=== PATIENT | female | born 1955 | race Caucasian/White ===

== ENCOUNTER → 2017-04-16 10:23 | Outpatient (CLI) | payer BC, SELFPAY ==
--- NOTE | 2017-04-16 10:28 | RAD_ITS ---
STUDY: X-RAY CHEST REASON FOR EXAM: Female, 61 years old. Cough. TECHNIQUE: PA and lateral views of the chest. COMPARISON: Comparison is made with prior study dated August 15, 2010. FINDINGS: The lungs are clear and expanded. Scattered calcified granulomas. There is no demonstrated pleural abnormality. Normal size heart. Normal mediastinum and rosy. Normal visualized pulmonary arteries. There is atherosclerotic calcification of the aortic arch with tortuosity. There is demineralization of the osseous structures. Normal visualized ribs, clavicles, and shoulders. There is no demonstrated abnormality of the visualized soft tissue structures of the upper abdomen. RAD/Chest PA and Lateral IMPRESSION: No acute abnormality is seen. Electronically Signed: Darrian Caruso MD at 14:33 EST Tel [phone], Service support ,
== END ==
PROVIDERS: Family Provider Internal Medicine; PCP Internal Medicine; Visit Provider Internal Medicine
DX: R05 Cough (principal)
CPT/HCPCS: 71046

== ENCOUNTER → 2018-02-15 09:19 | Outpatient (CLI) | payer BC, SELFPAY ==
--- NOTE | 2018-02-15 09:23 | RAD_ITS ---
STUDY: X-RAY CHEST REASON FOR EXAM: Female, 62 years old. Upper respiratory tract infection. TECHNIQUE: PA and lateral views of the chest. COMPARISON: Comparison is made with prior study dated April 16, 2017. FINDINGS: The lungs are clear and expanded. Scattered calcified granulomas. There is no demonstrated pleural abnormality. Normal size heart. Normal mediastinum and rosy. Normal visualized pulmonary arteries. There is atherosclerotic calcification of the aortic arch with tortuosity. Normal visualized thoracic spine. There is degenerative osteoarthritis of the bilateral shoulders. There is no demonstrated abnormality of the visualized soft tissue structures of the upper abdomen. RAD/Chest PA and Lateral IMPRESSION: No acute abnormality is seen. Electronically Signed: Darrian Caruso MD at 10:01 EST Tel [phone], Service support ,
--- OUTSIDE RECORDS SUMMARY | 2018-03-29 23:01 | XMS RPT_ITS | Continuity of Care Document ---
:1955 Author Organization [facility] Address [address] [place] [address] Phone Care Team Providers Name Role Phone Marzena Jansen CNP Unavailable Zoe Zeng DO Unavailable Lin Reese Unavailable Unavailable Unavailable Unavailable Problems Name Dates Details Abnormal lung sounds (R09.89, 786.7) Status: Active Acute bronchitis (J20.9, 466.0) Comments: issue ?viral seeing alot mycoplasma. Status: Active Anxiety (F41.9, 300.00) Status: Active BMI 32.0-32.9,adult (Z68.32, V85.32) Status: Active BMI 38.0-38.9,adult (Z68.38, V85.38) Status: Active Bronchitis (J40, 490) Status: Active Bruit of right carotid artery (R09.89, 785.9) Status: Active Cough (R05, 786.2) Status: Active Current nonsmoker (Renamed from Current non-smoker) (Z78.9, V49.89) Status: Active Deliveries (Parity) Comments: 1 Status: Active Depressive disorder (F32.9, 311) Status: Active Elevated blood pressure (not hypertension) (R03.0, 796.2) Comments: better Status: Active Fever and chills (R50.9, 780.60) Status: Active Gallbladder polyp (K82.4, 575.6) Comments: told due in nov for followup Status: Active GERD (gastroesophageal reflux disease) (K21.9, 530.81) Status: Active Low back pain (M54.5, 724.2) Status: Active Microcytosis (R71.8, 790.09) Status: Active Osteopenia (M85.80, 733.90) Status: Active Pharyngitis, acute (J02.9, 462) Comments: think allergies possibilty viral cannot rule out bacterial sinus infectionbut no yellow green. start off with check cx. 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.82) Status: Active URI (upper respiratory infection) (J06.9, 465.9) Status: Active VITAMIN D DEFICIENCY (Renamed from Avitaminosis D) (E55.9, 268.9) Status: Active Wheezing (R06.2, 786.07) Status: Active Medications Name Dates Details Albuterol Sulfate (2.5 MG/3ML) 0.083% Inhalation Nebulization Solution 1 (one) Milliliter x 1in office for 0 days Quantity: 1 {Nebule} Refills: 0 Ordered:15-Feb-2018 Marzena Jansen CNP, CNP Marzena Fontenot Start : 15-Feb-2018 Active Delsym 30 MG/5ML Oral Suspension Extended Release 1 (one) Milliliter q12hr for 0 days Quantity: 120 {Milliliter} Refills: 0 Ordered:15-Feb-2018 Marzena Jansen CNP, CNP Hyacinth Start : 15-Feb-2018 Active IRON SUPPLEMENT, 325 (65 Fe)MG (Oral Tablet) 1 tab bid (325 (65 Fe) MG) Active Pantoprazole Sodium 40 MG Oral Tablet Delayed Release 1 (one) Tablet DR daily for 90 days Quantity: 90 {Tablet} Refills: 0 Ordered:21-Feb-2018 Rosangela Mulligan DO Start : 21-Feb-2018 Active PredniSONE 10 MG Oral Tablet 1 (one) Tablet bid x 3 days,l then daily x 3 days then 1/2 x 3days for 0 days Quantity: 12 {Tablet} Refills: 0 Ordered:15-Feb-2018 Inderjit HAWK, Marzena Greco CNP, Marzena Fontenot Start : 15-Feb-2018 Active Comments:with food ProAir HFA 108 (90 Base) MCG/ACT Inhalation Aerosol Solution 2 (two) Puff q6hr for 0 days Quantity: 1 {Inhaler} Refills: 0 Ordered:15-Feb-2018 Inderjit HAWK, Marzena Greco CNP, Marzena Fontenot Start : 15-Feb-2018 Active VITAMIN D3, 2000UNIT (Oral Tablet) 2 (two) Tablet Tablet qd for 0 days Quantity: 60 {Tablet} Refills: 0 Ordered:16-Oct-2013 Jordyn Nicholson Start : 12-Jul-2013 Active Zithromax Z-Bakari 250 MG Oral Tablet 1 (one) Tablet uad for 0 days Quantity: 1 {Package} Refills: 0 Ordered:15-Feb-2018 Inderjit HAWK, Marzena Greco CNP, Marzena Fontenot Start : 15-Feb-2018 Active ALIGN, 4MG (Oral Capsule) 1 (one) Capsule Capsule daily for 0 days Quantity: 30 {Capsule} Refills: 0 Ordered:07-Mar-2015 MARISABEL Dodson Start : 21-May-2014 End : 07-Mar-2015 Inactive AYSE-D 12 HOUR, 60-120MG (Oral Tablet Extended Release 12 Hour) 1 Tablet ER 12HR q12 hr for 5 days Quantity: 10 {Tablet_ER_12HR} Refills: 0 Ordered:05-Jun-2009 Inderjit HAWK, Marzena Greco CNP, Marzena Fontenot Start : 05-Jun-2009 End : 10-Jun-2009 Inactive Amoxicillin-Pot Clavulanate 875-125 MG Oral Tablet 1 (one) Tablet bid for 10 days Quantity: 20 {Tablet} Refills: 0 Ordered:16-Apr-2017 Rosangela Mulligan DO Start : 16-Apr-2017 End : 26-Apr-2017 Inactive ATIVAN, 0.5MG (Oral Tablet) 1 (one) Tablet BID prn for 0 days Quantity: 60 {Tablet} Refills: 0 Ordered:29-Nov-2006 Yanely Roberson LPN Start : 29-Nov-2006 End : 29-Dec-2006 Inactive AUGMENTIN, 875-125MG (Oral Tablet) 1 (one) Tablet bid for 10 days Quantity: 20 {Tablet} Refills: 0 Ordered:13-Sep-2014 Rosangela Mulligan DO Start : 13-Sep-2014 End : 23-Sep-2014 Inactive CIPRO, 500MG (Oral Tablet) 1 (one) Tablet bid for 7 days Quantity: 14 {Tablet} Refills: 0 Ordered:24-May-2014 Inderjit HAWK, Marzena Greco CNP, Marzena Fontenot Start : 24-May-2014 End : 31-May-2014 Inactive LEVAQUIN, 500MG (Oral Tablet) 1 Tablet qd for 0 days Quantity: 10 {Tablet} Refills: 0 Ordered:27-Mar-2009 MARISABEL Dodson Start : 23-Mar-2007 End : 03-Feb-2007 Inactive LEVAQUIN, 500MG (Oral Tablet) 1 (one) Tablet daily for 10 days Quantity: 10 {Tablet} Refills: 0 Ordered:02-May-2014 Inderjit HAWK, Marzena Greco CNP, Marzena Fontenot Start : 02-May-2014 End : 12-May-2014 Inactive MUCINEX, 600MG (Oral Tablet Extended Release 12 Hour) 2 (two) Tablet ER 12HR Twice daily for 0 days Refills: 0 Ordered:29-Dec-2006 Yanely Roberson LPN Start : 29-Dec-2006 End : 03-Feb-2007 Inactive NASONEX, 50MCG/ACT (Nasal Suspension) 1 Suspension 2puffs once daily for 0 days Quantity: 1 {Suspension} Refills: 0 Ordered:24-Dec-2009 Nichelle Eng LPN Start : 27-Mar-2009 Inactive PREDNISONE, 20MG (Oral Tablet) 1 Tablet Daily for 0 days Quantity: 6 {Tablet} Refills: 0 Ordered:29-Dec-2006 Yanely Roberson LPN Start : 29-Dec-2006 End : 03-Feb-2007 Inactive PRILOSEC, 20MG (Oral Capsule Delayed Release) 1 (one) Capsule DR Capsule DR daily for 0 days Quantity: 30 {Capsule} Refills: 0 Ordered:07-Mar-2015 MARISABEL Dodson Start : 21-May-2014 End : 07-Mar-2015 Inactive QVAR, 80MCG/ACT (Inhalation Aerosol Solution) 2 (two) Aerosol Soln qam for 90 days Quantity: 3 {Aerosol_Soln} Refills: 0 Ordered:10-Dec-2010 Jordyn Nicholson Start : 10-Dec-2010 End : 10-Mar-2011 Inactive Comments:rinse mouth after use VALIUM, 10MG (Oral Tablet) 1/2-1 Tablet QHS / HS for 0 days Quantity: 14 {Tablet} Refills: 0 Ordered:27-Mar-2009 MARISABEL Dodson Start : 03-Feb-2007 Inactive ZOLOFT, 50MG (Oral Tablet) uad Tablet Daily for 0 days Quantity: 30 {Tablet} Refills: 2 Ordered:29-Dec-2006 Yanely Roberson LPN Start : 29-Dec-2006 End : 03-Feb-2007 Inactive Comments:do 1/2 tab daily for one week then one tablet daily AYSE-D 12 HOUR, 60-120MG (Oral Tablet Extended Release 12 Hour) 1 (one) Tablet ER 12HR q 12hrs prn for 30 days Quantity: 60 {Tablet_ER_12HR} Refills: 1 Ordered:05-Jul-2009 Amanda Hewitt LPN Start : 05-Jul-2009 End : 14-Jul-2011 Discontinued Comments:This order discontinued per [facility]. AYSE-D ALLERGY & CONGESTION, 180-240MG (Oral Tablet Extended Release 24 Hour) 1 Tablet ER 24HR bid for 30 days Quantity: 60 {Tablet_ER_24HR} Refills: 3 Ordered:20-Jul-2011 Mast Sivan BOSWELL Start : 14-Jul-2011 End : 20-Jul-2011 Discontinued ANTIVERT, 12.5MG (Oral Tablet) 1 Tablet q6hrs prn for 0 days Quantity: 30 {Tablet} Refills: 0 Ordered:12-Aug-2010 Jordyn Nicholson Start : 12-Aug-2010 End : 12-Aug-2010 Discontinued ATIVAN, 1MG (Oral Tablet) 1 tab 1 hr prior to procedure (1 MG) End : 12-Aug-2010 Discontinued ATIVAN, 1MG (Oral Tablet) 1 Tablet take 1 30 min before boarding plane and q8hrs prn for 0 days Quantity: 10 Refills: 0 Ordered:09-Jun-2013 Jordyn Nicholson Start : 14-Jul-2011 End : 09-Jun-2013 Discontinued Comments:ten LEXAPRO, 10MG (Oral Tablet) 1 (one) Tablet Daily for 0 days Quantity: 30 {Tablet} Refills: 0 Ordered:03-Feb-2007 Rosangela Mulligan DO Start : 03-Feb-2007 End : 03-Feb-2007 Discontinued NASACORT AQ, 55MCG/ACT (Nasal Aerosol Solution) 1 Aerosol Soln 2puffs once daily for 0 days Quantity: 1 {Aerosol_Soln} Refills: 0 Ordered:12-Aug-2010 Jordyn Nicholson Start : 12-Aug-2010 End : 12-Aug-2010 Discontinued PredniSONE 20 MG Oral Tablet 1 Tablet qd with food for 0 days Quantity: 3 {Tablet} Refills: 0 Ordered:15-Feb-2018 Lin Reese Start : 16-Apr-2017 End : 15-Feb-2018 Discontinued Comments:with food PROVENTIL HFA, 108 (90 Base)MCG/ACT (Inhalation Aerosol Solution) 2 (two) Aerosol Soln qid prn for 0 days Quantity: 1 {Aerosol_Soln} Refills: 0 Ordered:09-Jun-2013 Jordyn Nicholson Start : 20-Jul-2011 End : 09-Jun-2013 Discontinued Allergies and Adverse Reactions Name Dates Details No Known Drug Allergies (Allergy) Status: Active Past Medical History Name Dates Details Abdominal pain (R10.9, 789.00) Comments: epigastric Status: Inactive as of 13-Sep-2014 Abnormal finding of blood chemistry, unspecified (R79.9, 790.6) Status: Inactive as of 07-Mar-2015 Acute exacerbation of COPD with asthma (J44.1, 493.22) Status: Inactive as of 27-Mar-2009 Acute sinusitis, unspecified (J01.90, 461.9) Status: Resolved as of 12-Jul-2013 Anxiety state (F41.1, 300.00) Status: Inactive as of 07-Mar-2015 Benign paroxysmal positional vertigo, unspecified laterality (H81.10, 386.11) Status: Resolved as of 09-Jun-2013 Chronic orthostatic hypotension (I95.1, 458.0) Comments: negative Status: Inactive as of 27-Mar-2009 Cough (R05, 786.2) 20-Jul-2011 Status: Inactive as of 13-Sep-2014 Diarrhea (R19.7, 787.91) Comments: ongoingcolonoscopy 2013 by Sudeep Status: Inactive as of 13-Sep-2014 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 D/W Dr. Mulligan as well Status: Resolved as of 12-Aug-2010 Facial pain, acute (R51, 784.0) Status: Inactive as of 17-Jul-2016 Flu-like symptoms (R68.89, 780.99) Status: Inactive as of 17-Jul-2016 LEG CRAMPS (Renamed from Leg cramp) (R25.2, 729.82) Comments: replace iron and vitd Status: Inactive as of 13-Sep-2014 Nausea (R11.0, 787.02) Status: Inactive as of 13-Sep-2014 Other specified viral infection, in conditions classified elsewhere and of unspecified site (B97.89, 079.89) Status: Resolved as of 12-Jul-2013 POISON BIB Status: Inactive as of 27-Mar-2009 Pre-operative examination (Z01.818, V72.84) Status: Inactive as of 09-Jun-2013 Shortness of breath at rest (R06.02, 786.05) 20-Jul-2011 Status: Resolved as of 09-Jun-2013 Sinus infection (J32.9, 473.9) Status: Inactive as of 17-Jul-2016 Tobacco use (Z72.0, 305.1) Status: Inactive as of 27-Mar-2009 Unspecified Diagnosis Status: Inactive as of 12-Jul-2013 Weight gain (R63.5, 783.1) Status: Inactive as of 27-Mar-2009 Wheezing (R06.2, 786.07) 20-Jul-2011 Status: Inactive as of 13-Sep-2014 Procedures Procedure Dates Details bunion removed 2010 Completed Date Value Details 20-Feb-2018 Carotid Duplex Ultrasound Result: Comments: See Note; NOTES: [facility] Cardiovascular Services [address] [place] [address] Carotid Duplex Ultrasound 02/18/18 0754 MR#: [id number] Acct: [id number] Name: CLARITA ISSA Rep #: [id number] : 1955 62 From: Murtaza Polanco MD Attending Dr: Marzena Jansen NP Status: REG CLI Ordering Dr: Marzena Jansen E TAILER-C Date: 02/18/18 Location: [facility] Sex: F C Admitted: Reas on For Study: BRUIT Rt. Velocities/BP Lt. Velocities/BP Prox CCA 131/19 cm/sec. Prox CCA 80/21 cm/sec. Mid CCA 74/18 cm/sec. Mid CCA 78/21 cm/sec. Dist CCA 84/18 cm/sec. Dist CCA 59/24 cm/sec. Prox ICA 59/24 cm/sec. Prox ICA 46/18 cm/sec. Mid ICA 72/26 cm/sec. Mid ICA 65/26 cm/sec. Dist ICA 58/23 cm/sec. Dist ICA 78/31 cm/sec. Rt. ICA/CCA = 1.0. Lt. ICA/CCA = 1.0. Prox ECA 95/20 cm/sec. Prox ECA 103/ 15 cm/sec. Rt. Vert. 50/19 cm/sec. Lt. Vert. 55/15 cm/sec. Right Extracranial There is intimal thickening but no significant atherosclerotic plaque noted in the right common carotid artery. There is in timal thickening but no significant atherosclerotic plaque noted in the right internal carotid artery. There is homogeneous, smooth atherosclerotic plaque noted in the right external carotid artery. Ant egrade flow is noted in the right vertebral artery. Left Extracranial There is intimal thickening but no significant atherosclerotic plaque noted in the left common carotid artery. There is intimal th ickening but no significant atherosclerotic plaque noted in the left internal carotid artery. There is heterogeneous, smooth atherosclerotic plaque noted in the left external carotid artery. Antegrade f low is noted in the left vertebral artery. Procedure Carotid Duplex [id number]. Exam performed in department. Interpretation Summary No significant atherosclerotic plaque or stenosis noted in the internal carotid arteries bilaterally. Flow within the vertebral arteries is antegrade bilaterally. Myae ring Physician: Marzena Jansen Referring Physician: ZOE ZENG Performed By: Tracy Montero, JODYCS, RVT 02/20/181819 Date ____ Murtaza Polanco MD CC: Marzena Jansen E TAILER; Zoe Zeng DO Date Dictated: 02/18/18 0754 Date Transcribed: 02/20/181819 Actimize Architect: Signed 15-Feb-2018 Chest PA and Lateral Result: Comments: See Note; NOTES: [facility] Imaging Services [address] [place] [address] Chest PA and Lateral MR#: [id number] Acct: [id number] Name: CLARITA LAZO Rep #: [id number] : 1955 F 62 From: Darrian Caruso MD PCP: Zoe Zeng DO Status: REG CLI Study: Chest PA and Lateral Date of Exam: 02/15/18 Exam# [id number] Ordering Dr: Marzena Jansen E TAILER-C STUDY: X-RAY CHES T REASON FOR EXAM: Female, 62 years old. Upper respiratory tract infection. TECHNIQUE: PA and lateral views of the chest. COMPARISON: Comparison is made with prior study dated April 16, 2017. FINDINGS: The lungs are clear and expanded. Scattered calcified granulomas. There is no demonstrated pleural abnormality. Normal size heart. Normal mediastinum and rosy . Normal visualized pulmonary arteries. There is atherosclerotic calcification of the aortic arch with tortuosity. Normal visualized thoracic spine. There is degenerative osteoarthritis of the bilatera l shoulders. There is no demonstrated abnormality of the visualized soft tissue structures of the upper abdomen. RAD/Chest PA and Lateral IMPRES POLA: No acute abnormality is seen. Electronically Signed: Darrian Caruso MD at 10:01 EST Tel [phone], Service support , CC: Marzena Jansen E TAILER; Zoe Zeng DO Actimize Architect: Signed 16-Apr-2017 Chest PA and Lateral Result: Comments: See Note; NOTES: [facility] Imaging Services [address] [place] [address] Chest PA and Lateral MR#: [id number] Acct: [id number] Name: CLARITA LAZO Rep #: [id number] : 1955 F 61 From: Darrian Caruso MD PCP: Zoe Zeng DO Status: REG CLI Study: Chest PA and Lateral Date of Exam: 04/16/17 Exam# [id number] Ordering Dr: Rosangela Mulligan DO STUDY: X-RAY CHEST REASON FOR EXAM: Female, 61 years old. Cough. TECHNIQUE: PA and lateral views of the chest. COMPARISON: Comparison is made with prior study dated August 15, 2010. __ FINDINGS: The lungs are clear and expanded. Scattered calcified granulomas. There is no demonstrated pleural abnormality. Normal size heart. Normal mediastinum and rosy. Normal visualized pulmonar y arteries. There is atherosclerotic calcification of the aortic arch with tortuosity. There is demineralization of the osseous structures. Normal visualized ribs, clavicles, and shoulders. There is n o demonstrated abnormality of the visualized soft tissue structures of the upper abdomen. RAD/Chest PA and Lateral IMPRESSION: No acute abnormali ty is seen. Electronically Signed: Darrian Caruso MD at 14:33 EST Tel [phone], Service support , CC: Zoe Zeng DO; Rosangela Mulligan DO Actimize Architect: Signed 03-Oct-2014 History and Physical Exam Result: Comments: See Note; NOTES: [facility] Medical Records Department [address] [place] [address] History and Physical 10/03/14 1212 MR#: [id number] Acct: [id number] Name: CLARITA LAZO Rep #: [id number] : 1955 59 From: Phu Juan PA-C PCP: Zoe Zeng DO Status: PRE IN Location: [facility] DATE OF SERVICE: This is Tomás Slaughter, dictating a preopera tive H and P for Dr. Severo Foster. This is a 59-year-old female with a date of 1955. PLANNED PROCEDURE: The patient is scheduled for a left total knee arthroplasty. PRIMARY CARE PH YSICIAN: Zoe Zeng M.D. HISTORY OF PRESENT ILLNESS: A pleasant 59-year-old female, who has had an insidious type onset of pain over the past several years, it has progressively gotten worse over the past year and half. The patient describes the pain as a deep aching type pain, rated as high as an 8 on a scale of 1-10, has a constant pain of a 4. The patient states the pain is made worse with twisting or turning, going up or downstairs and does awake her at night. The patient has attempted to treat this conservatively with anti-inflammatories, intraarticular injections including Euflexxa, therapy and home exercise and lifestyle modification, but still finds the pain is now inhibiting her ability to do her normal daily activities. 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 The patient also has had periods where knee was going to give out on her secondary to the pain. Feels she has otherwise been in good health . She was recently treated by Dr. Zeng for a sinus infection. At this time, she is asymptomatic and cleared for surgery. It was also noted preoperatively, the patient does have positive Staph aureus, this will be treated via nasal swab. The patient will be treated per protocol. REVIEW OF SYSTEMS: The patient feels although again and otherwise in good health. Denies any other recent illnesses or infection. Denies any change in her hair, skin, or nails. Denies chest pain, heart murmur, or irregular heartbeat. Does have a history of bronchitis and cough, but is asymptomatic at this time. Denie s any history of asthma or sleep apnea. Does report a history of heartburn, but denies constipation, diarrhea, difficulty swallowing, hematochezia, or melena. Does report a history of irregular menstr ual periods, but denies any urinary complaints including incontinence, frequency, burning or hematuria. Does report history of tattoos, but denies any history of Raynaud or shingles. The patient nicholas es any history of anxiety, depression, insomnia, mental illness, stress or suicidal ideations. The patient denies any history of anemia, bleeding, bruising tendencies or past transfusions. I have maría acevedo discussed and reviewed at length and in detail 10 review of systems. All pertinent positives and negatives noted in the medical record. PAST MEDICAL HISTORY: The patient denies any pertinent p ast medical history. PAST SURGICAL HISTORY: The patient has had previous surgical history including lower back surgery by Dr. Coles in 2000, tubal ligation in [facility], and right foot surgery in [address] Bauman. The patient does report that she has difficult time with anesthesia, she has a hard time waking up. She does wear glasses and dentures. SOCIAL HISTORY: The germaine ent is with 1 child. 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 ALLERGIES: The patient denies any known allergies. MEDICATIONS: For complete list of the patient's presently prescribed medications, [id number] medications, supplements, as well as vitamins and herbs, please see the medication reconciliation form. PHYSICAL EXAMINATION: GENERAL: I found a healthy-appearing, alert, oriented, 59-year-old female. VITAL SIGNS: With the blood pres sure of 128/88, pulse of 100, and respiratory rate of . The patient is 64 inches tall with a weight of 190 pounds and a BMI of 31.4. HEENT: Within normal limits. NEUROLOGIC: Cranial nerves II th rough XII are grossly intact. NECK: Supple. No JVD. No carotid bruits. LUNGS: Clear. CARDIAC: No heaves, thrills or murmurs with a regular rate and rhythm. MUSCULOSKELETAL: The patient had no pain o n palpation of cervical, thoracic, or lumbosacral spine. She has full range of motion of bilateral shoulders, elbows, wrists and hands. Good muscle tone and strength. Neurovascular is otherwise intact . ABDOMEN: Soft, nontender without masses, equal femoral pulses. EXTREMITIES: Good range of motion of the bilateral hips. Good range of motion of the right knee without pain. Left knee, the patient h ad no gross varus valgus deformity. She was painful along the medial lateral joint line and also had a positive patellar grind test. She was lacking 4 degrees of full extension, flexion to 120 degrees with increased pain beyond 120 degrees. Calves nontender. No atrophic skin change, varicosity or edema. Neurovascular is otherwise intact. IMAGING STUDIES: Four views, AP, lateral, sunrise view a nd weightbearing tunnel shows significant narrowing of the medial lateral joint line and patellofemoral joint. She also has no gross varus valgus deformity. IMPRESSION: Tricompartmental osteoarthri tis, left knee. PLAN: Dr. Foster did discuss with the patient treatment options including continued conservative therapy versus surgery. At this time, the patient feels she has failed conservative therapies and would like to proceed with surgery. The patient also feels that her knee has got into a point where she is having difficult time doing just her basic daily activities and again would lik e to proceed with surgery. The plan, the patient will undergo a left total knee arthroplasty by Dr. oFster. She will then be admitted to [facility], where she will continu e with her postop medical care, pain management and therapy. Anticipated length of stay is 2 midnight stays. NABOR Slaughter T: NTS JOB: [id number] 10/03/14 1421 <Electronically stacie d by Phu Juan PA-C> Date: Time: Phu Juan PA-C CC: Zoe Zeng DO; Phu TOMLIN Date Dictated: 10/03/141211 Date Transcri bed: 10/03/141211 Actimize Architect: Signed ____ I have re-examined the patient. There are no clinical changes since date of exam. ____ See Progress Notes for Changes ____ Dictated on Admiss ion Date: Time: Signature: 06-Jun-2014 Lower Ext Joint Only (Routine) Result: Comments: See Note; NOTES: [facility] Imaging Services [address] [place] [address] MRI Report MR#: [id number] Acct: [id number] Name: CLARITA LAZO Rep #: [id number] OB: 1955 F 58 From: Jason Llanos MD PCP: Zoe Zeng DO Status: REG CLI Study: Lower Ext Joint Only (Routine) Date of Exam: 06/06/14 Exam# [id number] Ordering Dr: Phu Juan PAIshmaelC STUDY: MRI LEFT KNEE REASON FOR EXAM: Female, 58 years old. Lt knee injury with pain progressively getting worse x 3 months TECHNIQUE: Standardized fat and water weighted pulse sequences were obtained i n all 3 orthogonal planes. COMPARISON: None. FINDINGS: Normal medial meniscus. There is diffuse, greater than 50% thickness articular cartilage loss of the med ial femorotibial compartment. Normal medial femoral condyle and tibial plateau. Normal medial collateral ligamentous complex (MCL). Normal distal semimembranosus, gracilis and semitendinosus tendons . There is intrasubstance degeneration and a horizontal tear of the anterior horn of the lateral meniscus (sagittal proton density series 3 image 82). There is diffuse, greater than 50% thickness ar ticular cartilage loss of the lateral femorotibial compartment. Normal lateral femoral condyle and tibial plateau. Normal proximal tibiofibular articulation. Normal lateral collateral (fib ular) ligament. Normal popliteus tendon. Normal biceps femoris tendon. Normal anterior cruciate ligament (ACL). Normal posterior cruciate ligament (PCL). Normal congruent patellofemoral a rticulation. There is diffuse, greater than 50% thickness articular cartilage loss of the patellofemoral compartment. Normal medial and lateral patellar retinaculum. Normal quadriceps tendon. Normal patellar tendon. Normal Hoffa's fat pad. There is a moderate volume joint effusion. There is small posterior intra-articular loose bodies. There is a suprapatellar plica. The soft tissues are unre markable. The otherwise visualized osseous structures are unremarkable. IMPRESSION: Tricompartmental osteoarthritis. Intrasubstance degeneration and tearing of the lateral meniscus involving predominantly the anterior horn. Joint effusion. Intra-articular loose bodies. Electronically Signed: Jason Llanos MD, FACR at 20:16 EDT Tel , Service support [phone], CC: Zoe Zeng DO; Phu TOMLIN Actimize Architect: Signed 16-Apr-2014 Spine Lumbar W/WO Contrast Result: Comments: See Note; NOTES: [facility] Imaging Services [address] [place] [address] MRI Report MR#: [id number] Acct: [id number] Name: CLARITA LAZO Rep #: [id number] OB: 1955 F 58 From: Jamal Sauceda MD PCP: Zoe Zeng DO Status: REG CLI Study: Spine Lumbar W/WO Contrast Date of Exam: 04/16/14 Exam# [id number] Ordering Dr: Jamal Coles STUDY: MRI L UMBAR SPINE WITH AND WITHOUT CONTRAST REASON FOR EXAM: Female, 58 years old. Postop pain TECHNIQUE: Standardized fat and water weighted pulse sequences were obtained in the sagittal and axial plane s. 9 ml of Gadavist contrast material was administered for the contrast portion of the examination. COMPARISON: None FINDINGS: T12-L1: Degenerative endplate c hanges Normal disc height, hydration and morphology. Normal bilateral facet joints. Normal central canal and bilateral lateral recesses. Normal bilateral intervertebral neural foramina. Normal lumb ar lordosis. There is no substantial scoliosis. Normal conus medullaris L1- 2: Degenerative endplate changes Normal disc height, hydration and morphology. Normal bilateral facet joints. Normal centra l canal and bilateral lateral recesses. Normal bilateral intervertebral neural foramina. L2-3: Degenerative endplate changes. Normal disc height, hydration and morphology. Normal bilateral facet elier ints. Normal central canal and bilateral lateral recesses. Normal bilateral intervertebral neural foramina. L3-4: Degenerative endplate changes. Normal disc height, hydration and minimal annular bu lge Normal bilateral facet joints. Normal central canal and bilateral lateral recesses. Normal bilateral intervertebral neural foramina. L4-5: Grade 1 spondylolisthesis. Normal endplates. Normal dis c height, hydration and signal and are bulge. Mild bilateral facet arthropathy and thickening of ligamenta flava. Normal central canal and mild to moderate narrowing of the lateral recesses Normal bi lateral intervertebral neural foramina. L5-S1: Postop changes status post laminectomy and posterior fusion Normal endplates. Normal disc height, hydration and morphology. Normal bilateral facet everardo nts. Normal central canal and bilateral lateral recesses. Normal bilateral intervertebral neural foramina. Mild enhancing epidural fibrosis is seen in the anterior epidural space following contrast in jection. No evidence for osteomyelitis or discitis. Normal visualized sacral ala. Normal visualized paraspinous soft tissue structures. IMPRESSION: Spinal s tenosis at L4-5 secondary to combination of grade 1 spondylolisthesis facet arthropathy and thickening of ligamenta flava exaggerated by shortened pedicles. Postop changes at L5-S1 demonstrating mild anterior epidural fibrosis but no evidence for recurrent disc disease with spinal stenosis. No evidence for acute osteomyelitis or discitis. Electronically Signed: Jamal Sauceda MD a t 21:59 EST , Service support [phone], CC: Zoe Coles Actimize Architect: Signed 15-Aug-2013 Liver Result: Comments: See Note; NOTES: [facility] Imaging Services [address] [place] [id number] Ultrasound Report MR#: [id number] Acct: [id number] Name: CLARITA LAZO Rep #: [id number] : 1955 F 58 From: Darrian Caruso MD PCP: Zoe Zeng DO Status: REG CLI Study: Liver Date of Exam: 08/15/13 Exam# [id number] Ordering Dr: Zoe Zeng DO STUDY: ABDOMINAL ULTRASO UND - RIGHT UPPER QUADRANT REASON FOR VISIT: Female, 58 years old. Elevated liver function tests. TECHNIQUE: Ultrasound evaluation of the right upper quadrant was performed with real-time and stati c macedo-scale imaging. TECHNICAL QUALITY: Adequate. COMPARISON: None. FINDINGS: Liver: The liver measures 12.7 cm. There is normal echogenicity of the liver. The bile ducts are within normal limits. There is hepatic color flow. The direction of portal flow is hepatopetal. There is no demonstrated mass lesion. Gallbladder: Normal distended gallbladder. T he gallbladder wall measures 2.0 mm. There is a negative sonographic Sheets's sign. There is no pericholecystic fluid. There is a 5 mm echogenic nodule along the dependent portion of the gallbladder. This does not move when the patient changes position. There is no posterior acoustical shadowing. This may represent a small polyp. Common Bile Duct (C.B.D.): The common bile duct measures 4.4 mm. Pancreas: Normal size of the head, body and tail of the pancreas. There is normal echogenicity of the pancreas. There is no demonstrated pancreatic mass or cyst. Right Kidney: Normal size of the r ight kidney. The right kidney measures 9.1 cm. Normal renal cortex. The right cortex measures 1.1 cm. There is no demonstrated renal mass or cyst. There is no right hydronephrosis. IMPRESSION: Findings suggestive of a 5 mm polyp along the dependent portion of the gallbladder. 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 Status: Active Tobacco Use Comments: Recently quit tobacco use Status: Inactive Smoking Status Name Dates Details Former smoker Vital Signs Date Test Result Details :58 Temperature 98.1 f Comments: Method: Temporal Pulse 98 /min Comments: Pattern: Regular Respiration Rate 18 /min Comments: Pattern: Unlabored O2 SAT 95 % Comments: Room air BP Systolic 132 mm[Hg] Comments: Patient Position: Sitting; Cuff Location: Left Arm; Cuff Size: Standard BP Diastolic 78 mm[Hg] Comments: Patient Position: Sitting; Cuff Location: Left Arm; Cuff Size: Standard Weight 218.4 lb Height 63 in Body Mass Index Calculated 38.69 kg/m2 Body Surface Area Calculated 2.01 m2 :17 Temperature 98.5 f Pulse 88 /min Comments: Pattern: Regular Respiration Rate 18 /min Comments: Pattern: Unlabored O2 SAT 95 % Comments: Room air BP Systolic 142 mm[Hg] Comments: Patient Position: Sitting; Cuff Location: Left Arm; Cuff Size: Standard BP Diastolic 88 mm[Hg] Comments: Patient Position: Sitting; Cuff Location: Left Arm; Cuff Size: Standard Weight 183 lb Height 63 in Body Mass Index Calculated 32.42 kg/m2 Body Surface Area Calculated 1.86 m2 :03 Temperature 97.9 f Comments: Method: Temporal Pulse 76 /min Comments: Pattern: Regular Respiration Rate 20 /min Comments: Pattern: Unlabored O2 SAT 97 % Comments: Room air BP Systolic 120 mm[Hg] Comments: Patient Position: Sitting; Cuff Location: Left Arm; Cuff Size: Standard BP Diastolic 78 mm[Hg] Comments: Patient Position: Sitting; Cuff Location: Left Arm; Cuff Size: Standard Weight 183 lb Height 63 in Body Mass Index Calculated 32.42 kg/m2 Body Surface Area Calculated 1.86 m2 :02 Temperature 98.2 f Comments: Method: Temporal Pulse 93 /min Comments: Pattern: Regular Respiration Rate 20 /min Comments: Pattern: Unlabored O2 SAT 97 % Comments: Room air BP Systolic 148 mm[Hg] Comments: Patient Position: Sitting; Cuff Location: Left Arm; Cuff Size: Standard BP Diastolic 86 mm[Hg] Comments: Patient Position: Sitting; Cuff Location: Left Arm; Cuff Size: Standard Weight 183 lb Height 63 in Body Mass Index Calculated 32.42 kg/m2 Body Surface Area Calculated 1.86 m2 :52 Pulse 69 /min Comments: Pattern: Regular Respiration Rate 18 /min Comments: Pattern: Unlabored O2 SAT 96 % Comments: Room air BP Systolic 128 mm[Hg] Comments: Patient Position: Sitting; Cuff Location: Left Arm; Cuff Size: Standard BP Diastolic 82 mm[Hg] Comments: Patient Position: Sitting; Cuff Location: Left Arm; Cuff Size: Standard Weight 183.125 lb Height 63 in Body Mass Index Calculated 32.44 kg/m2 Body Surface Area Calculated 1.86 m2 :04 Temperature 97.3 f Pulse 101 /min Comments: Pattern: Regular Respiration Rate 16 /min Comments: Pattern: Unlabored O2 SAT 96 % Comments: Room air BP Systolic 116 mm[Hg] Comments: Patient Position: Sitting; Cuff Location: Left Arm; Cuff Size: Standard BP Diastolic 68 mm[Hg] Comments: Patient Position: Sitting; Cuff Location: Left Arm; Cuff Size: Standard Weight 183.125 lb Height 63 in Body Mass Index Calculated 32.44 kg/m2 Body Surface Area Calculated 1.86 m2 :18 Temperature 97.9 f Comments: Method: Oral Pulse 84 /min Comments: Pattern: Regular Respiration Rate 17 /min O2 SAT 94 % Comments: Room air BP Systolic 124 mm[Hg] Comments: Patient Position: Sitting; Cuff Location: Left Arm; Cuff Size: Standard BP Diastolic 76 mm[Hg] Comments: Patient Position: Sitting; Cuff Location: Left Arm; Cuff Size: Standard Weight 185.25 lb Height 63 in Body Mass Index Calculated 32.82 kg/m2 Body Surface Area Calculated 1.87 m2 :08 Temperature 97.8 f Pulse 96 /min Comments: Pattern: Regular Respiration Rate 18 /min Comments: Pattern: Unlabored O2 SAT 97 % Comments: Room air BP Systolic 122 mm[Hg] Comments: Patient Position: Sitting; Cuff Location: Left Arm; Cuff Size: Standard BP Diastolic 82 mm[Hg] Comments: Patient Position: Sitting; Cuff Location: Left Arm; Cuff Size: Standard Weight 186.125 lb Height 63 in Body Mass Index Calculated 32.97 kg/m2 Body Surface Area Calculated 1.88 m2 :57 Temperature 97.2 f Pulse 78 /min Comments: Pattern: Regular Respiration Rate 16 /min Comments: Pattern: Unlabored BP Systolic 124 mm[Hg] Comments: Patient Position: Sitting; Cuff Location: Left Arm; Cuff Size: Large BP Diastolic 82 mm[Hg] Comments: Patient Position: Sitting; Cuff Location: Left Arm; Cuff Size: Large Weight 182 lb Height 63 in Body Mass Index Calculated 32.24 kg/m2 Body Surface Area Calculated 1.86 m2 :09 Temperature 98.5 f Pulse 86 /min Comments: Pattern: Regular Respiration Rate 16 /min Comments: Pattern: Unlabored BP Systolic 122 mm[Hg] Comments: Patient Position: Sitting; Cuff Location: Left Arm; Cuff Size: Large BP Diastolic 82 mm[Hg] Comments: Patient Position: Sitting; Cuff Location: Left Arm; Cuff Size: Large Weight 178 lb Height 63 in Body Mass Index Calculated 31.53 kg/m2 Body Surface Area Calculated 1.84 m2 :26 Temperature 96.9 f Pulse 76 /min Comments: Pattern: Regular Respiration Rate 18 /min Comments: Pattern: Unlabored BP Systolic 134 mm[Hg] Comments: Patient Position: Sitting; Cuff Location: Left Arm; Cuff Size: Large BP Diastolic 86 mm[Hg] Comments: Patient Position: Sitting; Cuff Location: Left Arm; Cuff Size: Large Weight 178 lb Height 63 in Body Mass Index Calculated 31.53 kg/m2 Body Surface Area Calculated 1.84 m2 :21 Temperature 96.6 f Comments: Method: Oral Pulse 68 /min Comments: Pattern: Regular Respiration Rate 20 /min Comments: Pattern: Unlabored BP Systolic 128 mm[Hg] Comments: Patient Position: Sitting; Cuff Location: Left Arm; Cuff Size: Standard BP Diastolic 88 mm[Hg] Comments: Patient Position: Sitting; Cuff Location: Left Arm; Cuff Size: Standard Weight 183 lb Height 62.75 in Body Mass Index Calculated 32.68 kg/m2 Body Surface Area Calculated 1.86 m2 :08 Temperature 98.4 f Comments: Method: Oral Pulse 84 /min Comments: Pattern: Regular Respiration Rate 16 /min Comments: Pattern: Unlabored O2 SAT 95 % Comments: Room air BP Systolic 122 mm[Hg] Comments: Patient Position: Sitting; Cuff Location: Left Arm; Cuff Size: Standard BP Diastolic 86 mm[Hg] Comments: Patient Position: Sitting; Cuff Location: Left Arm; Cuff Size: Standard Weight 183 lb Height 62.75 in Body Mass Index Calculated 32.68 kg/m2 Body Surface Area Calculated 1.86 m2 :51 Temperature 98.3 f Comments: Method: Oral Pulse 68 /min Comments: Pattern: Regular Respiration Rate 16 /min Comments: Pattern: Unlabored BP Systolic 128 mm[Hg] Comments: Patient Position: Sitting; Cuff Location: Left Arm; Cuff Size: Standard BP Diastolic 76 mm[Hg] Comments: Patient Position: Sitting; Cuff Location: Left Arm; Cuff Size: Standard Weight 172 lb Height 62.75 in Body Mass Index Calculated 30.71 kg/m2 Body Surface Area Calculated 1.81 m2 :53 Temperature 97.9 f Pulse 72 /min Comments: Pattern: Regular Respiration Rate 16 /min Comments: Pattern: Unlabored BP Systolic 110 mm[Hg] Comments: Patient Position: Sitting; Cuff Location: Left Arm; Cuff Size: Standard BP Diastolic 86 mm[Hg] Comments: Patient Position: Sitting; Cuff Location: Left Arm; Cuff Size: Standard Weight 172 lb Height 62.75 in Body Mass Index Calculated 30.71 kg/m2 Body Surface Area Calculated 1.81 m2 :57 Temperature 97.3 f Comments: Method: Oral Pulse 72 /min Comments: Pattern: Regular Respiration Rate 16 /min Comments: Pattern: Unlabored BP Systolic 110 mm[Hg] Comments: Patient Position: Sitting; Cuff Location: Left Arm; Cuff Size: Standard BP Diastolic 70 mm[Hg] Comments: Patient Position: Sitting; Cuff Location: Left Arm; Cuff Size: Standard Weight 159 lb :09 Temperature 97.5 f Comments: Method: Oral Pulse 80 /min Comments: Pattern: Regular Respiration Rate 17 /min Comments: Pattern: Unlabored O2 SAT 97 % Comments: Room air BP Systolic 128 mm[Hg] Comments: Patient Position: Sitting; Cuff Location: Left Arm; Cuff Size: Standard BP Diastolic 74 mm[Hg] Comments: Patient Position: Sitting; Cuff Location: Left Arm; Cuff Size: Standard Weight 159 lb :10 Temperature 95.2 f Comments: Method: Oral Pulse 78 /min Comments: Pattern: Regular Respiration Rate 18 /min Comments: Pattern: Unlabored BP Systolic 124 mm[Hg] Comments: Patient Position: Sitting; Cuff Location: Left Arm; Cuff Size: Standard BP Diastolic 74 mm[Hg] Comments: Patient Position: Sitting; Cuff Location: Left Arm; Cuff Size: Standard Weight 159 lb :11 Temperature 98.2 f Comments: Method: Oral Pulse 84 /min Comments: Pattern: Regular Respiration Rate 18 /min Comments: Pattern: Unlabored O2 SAT 97 % Comments: Room air BP Systolic 118 mm[Hg] Comments: Patient Position: Sitting; Cuff Location: Left Arm; Cuff Size: Standard BP Diastolic 78 mm[Hg] Comments: Patient Position: Sitting; Cuff Location: Left Arm; Cuff Size: Standard :00 Temperature 98.1 f Comments: Method: Oral Pulse 76 /min Comments: Pattern: Regular Respiration Rate 16 /min Comments: Pattern: Unlabored BP Systolic 122 mm[Hg] Comments: Patient Position: Sitting; Cuff Location: Left Arm; Cuff Size: Standard BP Diastolic 80 mm[Hg] Comments: Patient Position: Sitting; Cuff Location: Left Arm; Cuff Size: Standard Weight 0 lb Height 0 in Head Circumference 0.00 cm :46 Temperature 99.1 f Comments: Method: Oral Pulse 72 /min Comments: Pattern: Regular Respiration Rate 18 /min Comments: Pattern: Unlabored O2 SAT 94 % Comments: Room air BP Systolic 122 mm[Hg] Comments: Patient Position: Sitting; Cuff Location: Right Arm; Cuff Size: Standard BP Diastolic 90 mm[Hg] Comments: Patient Position: Sitting; Cuff Location: Right Arm; Cuff Size: Standard Weight 159 lb Height 0 in Head Circumference 0.00 cm :27 Pulse 88 /min Comments: Pattern: Regular Respiration Rate 16 /min Comments: Pattern: Unlabored BP Systolic 132 mm[Hg] Comments: Patient Position: Sitting; Cuff Location: Left Arm; Cuff Size: Standard BP Diastolic 88 mm[Hg] Comments: Patient Position: Sitting; Cuff Location: Left Arm; Cuff Size: Standard Weight 161.125 lb Height 64 in Body Mass Index Calculated 27.66 kg/m2 Body Surface Area Calculated 1.78 m2 Head Circumference 0.00 cm :50 Pulse 80 /min Comments: Pattern: Regular Respiration Rate 20 /min Comments: Pattern: Unlabored BP Systolic 142 mm[Hg] Comments: Patient Position: Sitting; Cuff Location: Right Arm; Cuff Size: Standard BP Diastolic 94 mm[Hg] Comments: Patient Position: Sitting; Cuff Location: Right Arm; Cuff Size: Standard Weight 157.5 lb Height 64 in Body Mass Index Calculated 27.03 kg/m2 Body Surface Area Calculated 1.77 m2 Head Circumference 0.00 cm :16 Temperature 98.3 f Comments: Method: Oral Pulse 80 /min Comments: Pattern: Regular Respiration Rate 16 /min Comments: Pattern: Unlabored BP Systolic 132 mm[Hg] Comments: Patient Position: Sitting; Cuff Location: Left Arm; Cuff Size: Standard BP Diastolic 86 mm[Hg] Comments: Patient Position: Sitting; Cuff Location: Left Arm; Cuff Size: Standard Weight 0 lb Height 0 in Head Circumference 0.00 cm Results Date Description Value Details :23 THROAT CULTURE (77317) Comments: neg; PATIENT NOT FASTINGPERFORMED BY: [facility] [id number] Information: SRC:TH Result 1 RRF (Normal) Comments: Routine respiratory jonathan Upper Respiratory Culture Final report (Normal) 77-Hox-33265:09 Rapid Strep Test, Office (77443) Rapid Strep Test, Office Negative (Normal) 95-Vzo-30015:43 KATHERINE CULTURE-OTHER (56647) Comments: PATIENT NOT FASTINGPERFORMED BY: [facility] [id number] [facility] [id number] Information: SRC:TH Result 1 RRF (Normal) Comments: Routine respiratory jonathan Upper Respiratory Culture Final report (Normal) [id number]-Clb-[id number]:14 Rapid Strep Test, Office (87204) Rapid Strep Test, Office Negative (Normal) :07 FLU A+B DIRECT AG, (RAPID) (23972) FLU A+B DIRECT AG, (RAPID) negative a/b (Normal) :06 Rapid Strep Test, Office (64216) Rapid Strep Test, Office Negative (Normal) 3-Uhb-889955:34 Basic Metabolic Profile (BMP) Comments: Test performed at:[facility] [id number] [facility] [place] [address] GAP 6 (Normal) Range: 5-15 CO2 29.0 mmol/L (Normal) Range: 21.0-32.0 CL 103 mmol/L (Normal) Range: 98-107 K 4.2 mmol/L (Normal) Range: 3.5-5.1 NA 138 mmol/L (Normal) Range: 136-145 CA 8.9 mg/dL (Normal) Range: 8.5-10.1 BUN/CRE 24.3 {RATIO} (Abnormal) Range: 10-20 Estimated CRCL 72.88 ml/min (Normal) EST GFR - AA 109 mL/min (Normal) EST GFR 90 mL/min (Normal) CREAT,SERUM 0.7 mg/dL (Normal) Range: 0.6-1.0 BUN 17 mg/dL (Normal) Range: 7-18 GLU 91 mg/dL (Normal) Range: 70-110 3-Ibd-127454:34 MRSA/SAID SCREEN Comments: Test performed at:[facility] Flecwdsshj34[address] [facility] [place] [address] MRSA+SAID SCRN See Note (Normal) Comments: MRSA/SAID SCRNCopy of report sent to Infection Control Printer MS#[id number] 09/29/14 0858 DGRADY. S. AUREUS S. aureus PositiveMRSA MRSA Negative [id number]-Kiv-[id number]:34 Urinalysis, Routine (Dipstick) Comments: How was Urine Obtained? CLEAN CATCHTest performed at:[facility] [id number] [facility] [place] [address] LEUK ESTERASE Negative /ul (Normal) OCCULT BLOOD-UR 25 /ul (Abnormal) NITRITE UR Negative (Normal) UROBILI Normal mg/dL (Normal) PROT DIPSTX Negative mg/dL (Normal) pH UR 5.0 (Normal) Range: 5.0 - 8.0 SP.GR. DIPSTX 1.010 (Normal) Range: 1.002-1.030 KETONE UR Negative mg/dL (Normal) BILIRUBIN URINE Negative mg/dL (Normal) GLUCOSE, UR Normal mg/dL (Normal) CLARITY Clear (Normal) COLOR Straw (Normal) : C difficile Toxins Negative (Normal) Comments: PATIENT NOT FASTINGPERFORMED BY: [facility] [id number] [facility] [id number] 15 A+B, EIA : Occult Blood, Fecal, Negative (Normal) Comments: PATIENT NOT FASTINGPERFORMED BY: [address] [id number] 15 IA 9-Emw-179069:15 Ova + Parasite Exam Comments: PATIENT NOT FASTINGPERFORMED BY: [address] [id number] Result 1 NOCP (Normal) Comments: No ova, cysts, or parasites seen. Ova + Parasite Exam Final report (Normal) Comments: These results were obtained using wet preparation(s) and trichromestained smear. This test does not include testing for Cryptosporidiumparvum, Cyclospora, or Microsporidia. :15 Stool Culture Comments: PATIENT NOT FASTINGPERFORMED BY: [address] [id number] Information: SRC:ST STOOL E coli Shiga Toxin EIA Negative (Normal) Result 1 NCI (Normal) Comments: No Campylobacter species isolated. Campylobacter Culture Final report (Normal) Result 1 NSS (Normal) Comments: No Salmonella or Shigella recovered. Salmonella/Shigella Screen Final report (Normal) :15 White Blood Cells (WBC), Comments: PATIENT NOT FASTINGPERFORMED BY: [facility]6370 [facility] [id number] Stool Result 1 NWBC (Normal) Comments: No white blood cells seen. White Blood Cells (WBC), Final report (Normal) Stool :40 CBC & PLATELETS (AUTO) Comments: PATIENT NOT FASTINGPERFORMED BY: [place] [id number] [facility] [id number] Information: [id number] (98259) Platelets 259 {x10E3/uL} (Normal) Range: 150-379 RDW 15.0 % (Normal) Range: 12.3-15.4 MCHC 33.3 g/dL (Normal) Range: 31.5-35.7 MCH 28.7 pg (Normal) Range: 26.6-33.0 MCV 86 fL (Normal) Range: 79-97 Hematocrit 45.9 % (Normal) Range: 34.0-46.6 Hemoglobin 15.3 g/dL (Normal) Range: 11.1-15.9 RBC 5.33 {x10E6/uL} (Abnormal) Range: 3.77-5.28 WBC 8.5 {x10E3/uL} (Normal) Range: 3.4-10.8 98-Fps-577868:18 Serum Creatinine AND GFR Comments: Test performed at:[facility] Ajrkdcplbd[address] [place], [place] [id number] ; handled by Dr. Coles EST GFR - AA 110 mL/min (Normal) EST GFR 91 mL/min (Normal) CREAT,SERUM 0.7 mg/dL (Normal) Range: 0.6-1.0 16-Max-622143:38 AMA <20.0 {Units} (Normal) Range: 0.0-20.0 Comments: Negative 0.0 - 20.0Equivocal 20.1 - 24.9Positive >24.9Mitochondrial (M2) Antibodies are found in 90-96% ofpatients with primary biliary cirrhosis.Performed at: [facility] [id number] [place], [place] [id number] Director: Joao Begum MD, Phone: [phone] 62-Bep-642259:39 CBCD ALC 2.70 {X10_3/ul} (Normal) Range: 0.83-4.51 ANC 4.0 {X10_3/uL} (Normal) Range: 2.0-7.7 B% 0.4 % (Normal) Range: 0-1 IG% 0.100 % (Normal) Range: 0.0-0.9 Comments: IG% - Immature Granulocytes (promyelocytes, myelocytes andmetamyelocytes) > 1% indicates that a LEFT SHIFT is Present. E% 2.0 % (Normal) Range: 0-5 M% 7.0 % (Normal) Range: 0-10 L% 36.5 % (Normal) Range: 19-41 N% 54.0 % (Normal) Range: 47-70 MPV 10.8 fL (Normal) Range: 6.2-12.0 PLT 261 K/mm3 (Normal) Range: 150-450 RDWCV 17.4 % (Abnormal) Range: 11.6-14.6 RDWSD 52.6 fL (Abnormal) Range: 35.1-43.9 MCH 27.6 pg (Normal) Range: 27.0-32.0 MCHC 33.3 {g/gl} (Normal) Range: 32-36 MCV 82.7 fL (Normal) Range: 81-99 HCT 43.5 % (Normal) Range: 37-47 HGB 14.5 g/dL (Normal) Range: 12.0-15.0 RBC 5.26 {M/mm3} (Normal) Range: 4.2-5.4 WBC 7.4 K/mm3 (Normal) Range: 4.4-11.0 88-Mqz-993451:39 CMP CO2 28.0 mmol/L (Normal) Range: 21.0-32.0 GAP 8 (Normal) Range: 5-15 CL 105 mmol/L (Normal) Range: 98-107 K 3.8 mmol/L (Normal) Range: 3.5-5.1 NA 141 mmol/L (Normal) Range: 136-145 ALT 22 U/L (Normal) Range: 12-78 BIT 0.30 mg/dL (Normal) Range: 0.00-1.00 ALK 117 U/L (Normal) Range: 45-117 AST 20 U/L (Normal) Range: 15-37 CA 9.2 mg/dL (Normal) Range: 8.5-10.1 AG 0.9 {RATIO} (Normal) Range: 0.9-2.4 GLOB 3.8 g/dL (Normal) Range: 2.7-4.2 ALB 3.4 g/dL (Normal) Range: 3.4-5.0 TPROT 7.2 g/dL (Normal) Range: 6.4-8.2 BC 13.3 {RATIO} (Normal) Range: 10-20 GFRAA 82 mL/min (Normal) GFR 68 mL/min (Normal) CREAT 0.9 mg/dL (Normal) Range: 0.6-1.0 BUN 12 mg/dL (Normal) Range: 7-18 GLU 88 mg/dL (Normal) Range: 70-110 23-Shf-326236:39 FE 36 ug/dL (Abnormal) Range: 50-170 63-Jlq-440180:39 EMMA 18 ng/mL (Normal) Range: 8-252 05-Yzl-292347:39 VITD 39.0 mg/mL (Normal) Comments: Vitamin D 25(OH) Status RangeDeficiency <20 ng/mL (50nmol/L)Insuffciency 20 - 30 ng/mL (50 - 75 nmol/L)Sufficiency 30 - 100 ng/mL (75 - 250 nmol/L)Toxicity >100 ng/mL (>250 nmol/L) 97-Muc-902153:07 ALK *ALK* 167 U/L (Abnormal) Range: 50-136 97-Loy-907311:07 ALKISO tALKI 4 % (Normal) Range: 0-16 Comments: Effective August 07, 2013 the reference intervalwill be changing to:0 - 30 days Not Established1 month - 17 years 0 - 818 years - 100 years 0 - 18Performed at: CB - [facility] [address] [id number] Director: Joao Begum MD, Phone: [phone] tALKB 41 % (Normal) Range: 11-68 Comments: Effective August 07, 2013 the reference intervalwill be changing to:Male0 months - 6 months Not Established7 months - 5 years 48 - 976 years - 17 years 67 - 971 8 years - 100 years 12 - 71Fnzunf8 months - 6 months Not Established7 months - 5 years 48 - 976 years - 12 years 69 - 9713 years - 100 years 14 - 68 tALKL 55 % (Normal) Range: 26-86 Comments: Effective August 07, 2013 the reference intervalwill be changing to:Male0 months - 6 months Not Established7 months - 5 years 3 - 506 years - 17 years 3 - 311 8 years - 100 years 13 - 94Tzzrag4 months - 6 months Not Established7 months - 5 years 3 - 516 years - 12 years 2 - 2513 years - 100 years 18 - 85 tALKPHOS 142 [iU]/L (Abnormal) Range: 39-117 97-Ixe-655669:07 GGTP 79 U/L (Abnormal) Range: 5-55 67-Vfq-844339:33 FECAL OCCULT HGB ASSAY- tubes sent home (17753) FECAL OCCULT HGB ASSAY, QUAL, 1-3 SIMULTANEOU negative (Normal) 21-Klo-718952:34 Microscopic Examination Comments: PATIENT WAS FASTINGPERFORMED BY: MED[facility] [id number]Dublin [place] [id number] Bacteria None seen (Normal) Mucus Threads Present (Normal) Epithelial Cells (non renal) 0-10 {/hpf} (Normal) Range: 0 - 10 RBC 0-3 {/hpf} (Normal) Range: 0 - 3 WBC 0-5 {/hpf} (Normal) Range: 0 - 5 23-Amd-419464:10 Creatine Kinase Total (95910) Comments: PATIENT WAS FASTINGPERFORMED BY: [facility] [id number]Dublin [place] [id number] Creatine Kinase,Total,Serum 61 U/L (Normal) Range: 24-173 53-Pae-221701:10 Vitamin D Hydroxy (00393) Comments: PATIENT WAS FASTINGPERFORMED BY: [facility] [id number]Dublin [place] [id number] Vitamin D, 25-Hydroxy 21.8 ng/mL (Abnormal) Range: 30.0-100.0 Comments: Vitamin D deficiency has been defined by the [place] ofMedicine and an Endocrine Society practice guideline as alevel of serum 25-OH vitamin D less than 20 ng/mL (1,2).The Endocrine Society went on to further define vitamin Dinsufficiency as a level between 21 and 29 ng/mL (2).1. IOM ([place] of Medicine). 2010. Dietary reference intakes for calcium and D. [place]: The National Academies Press.2. Azucena MF, Emelyn NC, Cristian MARADIAGA, et al. Evaluation, treatment, and prevention of vitamin D deficiency: an Endocrine Society clinical practice guideline. JCEM. 2010; 96(7):1911-30. 72-Zme-364004:10 LIPID PANEL (99153) Comments: PATIENT WAS FASTINGPERFORMED BY: [facility] Eirltn[address]Dublin [place] [id number] LDL/HDL Ratio 1.2 {ratio_units} (Normal) Range: 0.0-3.2 LDL Cholesterol Calc 110 mg/dL (Abnormal) Range: 0-99 VLDL Cholesterol Elijah 10 mg/dL (Normal) Range: 5-40 HDL Cholesterol 94 mg/dL (Normal) Comments: According to ATP-III Guidelines, HDL-C >59 mg/dL is considered anegative risk factor for CHD. Triglycerides 48 mg/dL (Normal) Range: 0-149 Cholesterol, Total 214 mg/dL (Abnormal) Range: 100-199 23-Zxf-507706:10 URINALYSIS, W/ MICRO (13913) Comments: PATIENT WAS FASTINGPERFORMED BY: [facility] [id number] Microscopic Examination See below: (Normal) Microscopic Examination MICRON (Normal) Comments: Microscopic follows if indicated. Nitrite, Urine Negative (Normal) Urobilinogen,Semi-Qn 0.2 mg/dL (Normal) Range: 0.0-1.9 Bilirubin Negative (Normal) Occult Blood Negative (Normal) Ketones Negative (Normal) Glucose Negative (Normal) Protein Negative (Normal) WBC Esterase Negative (Normal) Appearance Clear (Normal) Urine-Color Yellow (Normal) pH 7.0 (Normal) Range: 5.0-7.5 Specific [place] 1.016 (Normal) Range: 1.005-1.030 13-Wek-265937:10 TSH (59103) Comments: PATIENT WAS FASTINGPERFORMED BY: [id number] [facility] [id number] TSH 0.851 {uIU/mL} (Normal) Range: 0.450-4.500 51-Grj-527306:10 CBC WITH MANUAL DIFF Comments: PATIENT WAS FASTINGPERFORMED BY: [employer] Uzhxtw8153 [facility] [id number] Information: [id number] (00732) Immature Grans (Abs) 0.0 {x10E3/uL} (Normal) Range: 0.0-0.1 Immature Granulocytes 0 % (Normal) Range: 0-2 Baso (Absolute) 0.1 {x10E3/uL} (Normal) Range: 0.0-0.2 Eos (Absolute) 0.2 {x10E3/uL} (Normal) Range: 0.0-0.4 Monocytes(Absolute) 0.5 {x10E3/uL} (Normal) Range: 0.1-0.9 Lymphs (Absolute) 2.3 {x10E3/uL} (Normal) Range: 0.7-3.1 Neutrophils (Absolute) 4.1 {x10E3/uL} (Normal) Range: 1.4-7.0 Basos 1 % (Normal) Range: 0-3 Eos 3 % (Normal) Range: 0-5 Monocytes 7 % (Normal) Range: 4-12 Lymphs 32 % (Normal) Range: 14-46 Neutrophils 57 % (Normal) Range: 40-74 Platelets 354 {x10E3/uL} (Normal) Range: 155-379 RDW 18.8 % (Abnormal) Range: 12.3-15.4 MCHC 31.9 g/dL (Normal) Range: 31.5-35.7 MCH 23.5 pg (Abnormal) Range: 26.6-33.0 MCV 74 fL (Abnormal) Range: 79-97 Hematocrit 38.2 % (Normal) Range: 34.0-46.6 Hemoglobin 12.2 g/dL (Normal) Range: 11.1-15.9 RBC 5.20 {x10E6/uL} (Normal) Range: 3.77-5.28 WBC 7.2 {x10E3/uL} (Normal) Range: 3.4-10.8 87-Tvi-146061:10 METABOLIC PANEL, COMPREHENSIVE Comments: PATIENT WAS FASTINGPERFORMED BY: [facility]St[facility] CenterFcexpl6651 [facility] [id number] ([id number]) ALT (SGPT) 26 [iU]/L (Normal) Range: 0-32 AST (SGOT) 25 [iU]/L (Normal) Range: 0-40 Alkaline Phosphatase, S 140 [iU]/L (Abnormal) Range: 39-117 Bilirubin, Total 0.4 mg/dL (Normal) Range: 0.0-1.2 A/G Ratio 1.5 (Normal) Range: 1.1-2.5 Globulin, Total 2.8 g/dL (Normal) Range: 1.5-4.5 Albumin, Serum 4.1 g/dL (Normal) Range: 3.5-5.5 Protein, Total, Serum 6.9 g/dL (Normal) Range: 6.0-8.5 Calcium, Serum 9.3 mg/dL (Normal) Range: 8.7-10.2 Carbon Dioxide, Total 25 mmol/L (Normal) Range: 19-28 Chloride, Serum 102 mmol/L (Normal) Range: 97-108 Potassium, Serum 4.8 mmol/L (Normal) Range: 3.5-5.2 Sodium, Serum 140 mmol/L (Normal) Range: 134-144 BUN/Creatinine Ratio 18 (Normal) Range: 9-23 eGFR If Africn Am 104 mL/min/1.73 (Normal) eGFR If NonAfricn Am 90 mL/min/1.73 (Normal) Creatinine, Serum 0.73 mg/dL (Normal) Range: 0.57-1.00 BUN 13 mg/dL (Normal) Range: 6-24 Glucose, Serum 81 mg/dL (Normal) Range: 65-99 04-Uts-640008:55 CHEST, PA AND LATERAL Radiology Report See Note (Normal) Comments: CLINICAL:Female, 55 years old. Preop. Prior tobacco use. X-RAY EXAMINATION - CHEST TECHNIQUE:PA and lateral COMPARISON:None. FINDINGS: The lungs are expanded. There is no demonstrated parenchymalabnor mality.There is no demonstrated pleural abnormality. Normal heart and pericardium. Normal mediastinum and rosy. Normal visualized pulmonary arteries.Thereis atherosclerotic calcification of the aortic arch . Normal visualized thoracic spine. Normal visualized ribs, clavicles, andshoulders. There is no demonstrated abnormality of the visualized soft tissuestructures of the upper abdomen. IMPRESSION:N o acute thoracic process Dictated on 08/15/108 by SEVERO EMERY MDTranscribed on 08/15/102346 by ITS IMPORTSign by SEVERO EMERY MD on 08/15/102346 Sign by: SEVERO EMERY MD Plan of Care Name Dates Details Instructions BMI 38.0-38.9,adult : Follow up if no improvement or if symptoms worsen Indication: BMI 38.0-38.9,adult Current nonsmoker (Renamed from Current non-smoker) : Eprescribed prescriptions (G8553) Indication: Current nonsmoker (Renamed from Current non-smoker) BMI 32.0-32.9,adult : Eprescribed prescriptions (G8553) Indication: BMI 32.0-32.9,adult Pharyngitis, acute : Sore throat: diagnosis and treatment Indication: Pharyngitis, acute Tobacco abuse, 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) : Eprescribed prescriptions (G8553) Indication: Tobacco abuse, 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) Pharyngitis, acute : Sore throat: diagnosis and treatment Indication: Pharyngitis, acute Sinus infection : Eprescribed prescriptions (G8553) Indication: Sinus infection Sinus infection : Sinusitis *: sinus Indication: Sinus infection Nausea : Follow up in 2 days Indication: Nausea Diarrhea : *Abd Pain Red Flags Indication: Diarrhea Diarrhea : Diarrhea instructions Indication: Diarrhea Bronchitis : *URI Treatment Indication: Bronchitis Bronchitis : *URI Symptoms Indication: Bronchitis Bronchitis : *Antibiotic Usage Education - Female Indication: Bronchitis Acute sinusitis, unspecified : *URI Treatment Indication: Acute sinusitis, unspecified Acute sinusitis, unspecified : *Antibiotic Usage Education - Female Indication: Acute sinusitis, unspecified Cough : Follow up if no improvement or if symptoms worsen Indication: Cough Benign paroxysmal positional vertigo, unspecified laterality : FOLLOW UP IN 2 WEEKS Indication: Benign paroxysmal positional vertigo, unspecified laterality Benign paroxysmal positional vertigo, unspecified laterality : *Vertigo Education Indication: Benign paroxysmal positional vertigo, unspecified laterality Other specified viral infection, in conditions classified elsewhere and of unspecified site : *URI Symptoms Indication: Other specified viral infection, in conditions classified elsewhere and of unspecified site Other specified viral infection, in conditions classified elsewhere and of unspecified site : *URI Treatment Indication: Other specified viral infection, in conditions classified elsewhere and of unspecified site Diarrhea : Abd Pain Red Flags Indication: Diarrhea Diarrhea : Diarrhea Education Indication: Diarrhea Acute exacerbation of COPD with asthma : URI Symptoms Indication: 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 : Antibiotic Usage Education - Female Indication: Acute exacerbation of COPD with asthma Anxiety : FOLLOW UP IN 1 MONTH Indication: Anxiety Acute exacerbation of COPD with asthma : MDI Education Indication: 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 : Solu Medrol Injection/ Education Indication: Acute exacerbation of COPD with asthma Planned Observations Sputum Culture (11332)Indication: Cough On: 92-Huc-89306:39 Request OVA & PARASITE DIR SMEAR (06142)Indication: Diarrhea On: : Request OCCULT BLOOD FECES SCREEN (42517)Indication: Diarrhea On: :27 Request LEUKOCYTE COUNT, FECAL (55894)Indication: Diarrhea On: : Request C-DIFFICILE, STOOL (10230)Indication: Diarrhea On: : Request KATHERINE CULTURE-STOOL (02232)Indication: Diarrhea On: :27 Request Ferritin (07940)Indication: Microcytosis On: 8-Qnz-101267:03 Request Iron (96759)Indication: Microcytosis On: : Request CBC with manual diff (87447)Indication: Microcytosis On: :03 Request Mitochondrial Antibody (M2) (81688)Indication: Abnormal finding of blood chemistry, unspecified On: : Request METABOLIC PANEL, COMPREHENSIVE (62532)Indication: Gallbladder polyp On: :24 Request CBC WITH MANUAL DIFF (10179)Indication: Microcytosis On: :24 Request FERRITIN (48957)Indication: Microcytosis On: :24 Request IRON (53342)Indication: Microcytosis On: 68-Foh-343725:24 Request Vitamin D Hydroxy (78653)Indication: VITAMIN D DEFICIENCY (Renamed from Avitaminosis D) On: :24 Request IRON BINDING CAPACITY (TIBC) (56462)Indication: Microcytosis On: 7-Wqz-401768:36 Request FERRITIN (99221)Indication: Microcytosis On: 8-Mxl-295891:36 Request IRON (63442)Indication: Microcytosis On: 6-Qhx-438010:36 Request CBC WITH MANUAL DIFF (54913)Indication: Microcytosis On: 5-Gkc-407053:36 Request Vitamin D Hydroxy (58194)Indication: VITAMIN D DEFICIENCY (Renamed from Avitaminosis D) On: 8-Tmb-635536:36 Request HEPATIC FUNCTION PANEL (71624)Indication: Abnormal finding of blood chemistry, unspecified On: 4-Loa-636697:52 Request Comments: recheck in 3 months Mitochondrial Antibody (M2) (85041)Indication: Abnormal finding of blood chemistry, unspecified On: 05-Qax-940189:29 Request GGT (GAMMA GLUTAMYLTRANSFERASE) (88371)Indication: Abnormal finding of blood chemistry, unspecified On: 83-Nmm-39506:55 Request Comments: pls add to order already drawn Alkaline Phosphatase-Isoenzym (01015)Indication: Abnormal finding of blood chemistry, unspecified On: 36-Szg-536669:36 Request Alkaline Phosphatase (08334)Indication: Abnormal finding of blood chemistry, unspecified On: 54-Knp-205147:36 Request TSH (76703)Indication: Elevated blood pressure (not hypertension) On: :36 Request URINALYSIS, W/ MICRO (62063)Indication: Elevated blood pressure (not hypertension) On: :36 Request CBC WITH MANUAL DIFF (55150)Indication: Pre-operative examination On: :36 Request METABOLIC PANEL, COMPREHENSIVE (90479)Indication: Pre-operative examination On: :36 Request KATHERINE CULTURE-STOOL (15145)Indication: Diarrhea On: :46 Request C-DIFFICILE, STOOL (54953)Indication: Diarrhea On: :46 Request LEUKOCYTE COUNT, FECAL (00358)Indication: Diarrhea On: :46 Request LIPID PANEL (15364)Indication: Elevated blood pressure (not hypertension) On: :21 Request URINALYSIS W/O MICRO (84300)Indication: Elevated blood pressure (not hypertension) On: 9-Cax-417516:21 Request TSH (75096)Indication: Elevated blood pressure (not hypertension) On: 0-Jly-056215:21 Request METABOLIC PANEL, COMPREHENSIVE (55614)Indication: Elevated blood pressure (not hypertension) On: :21 Request CBC WITH MANUAL DIFF ([id number])Indication: Elevated blood pressure (not hypertension) On: 0-Rrn-741613:21 Request Planned Procedures CHEST XRAY, PA & LATERAL On: 15-Feb-2018 Intent (47035)By: Inderjit HAWK, Marzena Jansen CNP, [facility] US DOPPLER CAROTID BILATERAL On: 15-Feb-2018 Intent (50487)By: Marzena Jansen CNP, CNP [facility] Aerosol Treatment (90513)By: Inderjit On: 15-Feb-2018 Intent KENN HyacinthPo Jansen CNP [facility] Radiology - Chest- PA and LatBy: On: 16-Apr-2017 Intent Rosangela Mulligan DO Spirometry (32386)By: Isaak WANG, On: 16-Apr-2017 Intent Rosangela Comments: obstruction presnet Aerosol Treatment (40866)By: On: 07-Mar-2015 Intent Jeb ANTONIO, Li Ohara Solu -Medrol Injection, 125 mg On: 02-May-2014 Intent (J2930)By: Marzena Jansen CNP Comments: [id number] hip, IMDose-prefilled syringegiven by:GA Hart signed KENN Marzena Fontenot Aerosol Treatment (21238)By: Humble On: 02-May-2014 Intent Felisha GALLEGOS Ultrasound - GallbladderBy: Fast On: 16-Oct-2013 Intent Zoe WANG Comments: nov Ultrasound - LiverBy: Leroy WANG, On: 22-Aug-2013 Intent Zoe Lam Comments: recheck in 3 months Ultrasound - LiverBy: Leroy WANG, On: 08-Aug-2013 Intent Zoe Lam Eprescribed prescriptions On: 09-Jun-2013 Intent (G8553)By: Zoe Zeng DO Eprescribed prescriptions On: 05-May-2012 Intent (G8553)By: Rosangela Mulligan DO Aerosol Treatment (94490)By: Inderjit On: 20-Jul-2011 Intent KENN HyacinthPo Jansen CNP [facility] Pulse Oximetry (96627)By: Shadi RN, On: 20-Jul-2011 Intent Sivan Inhaler Demo (28143)By: Leroy WANG, On: 12-Aug-2010 Intent Zoe Lam EKG (25656)By: Jordyn Nicholson On: 12-Aug-2010 Intent Comments: ekg showed normal sinus rhythym, normal axis, no acute st/t wave changes Spirometry (62813)By: Leroy WANG, On: 12-Aug-2010 Intent Zoe A Comments: good effort and curve mild obst Pulse Oximetry (21795)By: Leroy WANG, On: 12-Aug-2010 Intent Zoe A Comments: 96 Radiology - Chest- PA and LatBy: On: 12-Aug-2010 Intent Zoe Zeng DO Aerosol Treatment (32082)By: Inderjit On: 05-Jun-2009 Intent Marzena HAWK CNP, Mary E Pulse Oximetry (12963)By: West On: 27-Mar-2009 Intent MARISABEL Aerosol Treatment (77626)By: Leroy On: 23-Mar-2007 Zoe Tyson DO Spirometry (39517)By: Leroy WANG, On: 23-Mar-2007 Intent Zoe Lam Comments: good effort but significant obstruction alexis in small areas Solu- Medrol Injection, 125mg On: 29-Mar-2007 Intent (J2930)By: Zoe Zeng DO Comments: Lot #: [id number] date: mount given: 125 mg/2 mlRoute: IMSite given: Left hipGiven by: Carole Sheridan LPN Pulse Oximetry (70384)By: Shadi RN, On: 23-Mar-2007 Intent Sivan Inhaler Demo (33063)By: Isaak WANG, On: 29-Dec-2006 Intent Rosangela Pulse Oximetry (34114)By: Isaak On: 29-Dec-2006 Intent Rosangela WANG Aerosol Treatment (00785)By: On: 29-Dec-2006 Rosangela Davis DO Solu- Medrol Injection, 125mg On: 29-Dec-2006 Intent (J2930)By: Rosangela Mulligan DO Comments: given 2cc im in left hip lot#[id number] exp.07/2009-aw Planned Medications INJECTION, METHYLPREDNISOLONE SODIUM SUCCINATE, UP TO 125 MG Ordered: 02-May-2014 Pending Marzena Jansen CNP, CNP, Mary E Instructions Name Dates Details Current nonsmoker (Renamed from Current non-smoker) : How to access health information online Indication: Current nonsmoker (Renamed from Current non-smoker) Current nonsmoker (Renamed from Current non-smoker) : How to access health information online - Detail Indication: Current nonsmoker (Renamed from Current non-smoker) Current nonsmoker (Renamed from Current non-smoker) : Patient Instructions Indication: Current nonsmoker (Renamed from Current non-smoker) BMI 32.0-32.9,adult : How to access health information online Indication: BMI 32.0-32.9,adult BMI 32.0-32.9,adult : How to access health information online - Detail Indication: BMI 32.0-32.9,adult BMI 32.0-32.9,adult : Patient Instructions Indication: BMI 32.0-32.9,adult Pharyngitis, acute : How to access health information online Indication: Pharyngitis, acute Pharyngitis, acute : How to access health information online - Detail Indication: Pharyngitis, acute Pharyngitis, acute : Patient Instructions Indication: Pharyngitis, acute Tobacco abuse, 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) : How to access health information online Indication: Tobacco abuse, 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, 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) : How to access health information online - Detail Indication: Tobacco abuse, 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) Sinus infection : How to access health information online Indication: Sinus infection Sinus infection : How to access health information online - Detail Indication: Sinus infection Sinus infection : Patient Instructions Indication: Sinus infection Abdominal pain : Patient Instructions Indication: Abdominal pain Nausea : Patient Instructions Indication: Nausea Depressive disorder : Patient Instructions Indication: Depressive disorder VITAMIN D DEFICIENCY (Renamed from Avitaminosis D) : Patient Instructions Indication: VITAMIN D DEFICIENCY (Renamed from Avitaminosis D) GERD (gastroesophageal reflux disease) : Patient Instructions Indication: GERD (gastroesophageal reflux disease) Acute sinusitis, unspecified : Patient Instructions Indication: Acute sinusitis, unspecified Encounters Office Visit On: 15-Feb-2018 7:57 Encounter Reason: Cold Symptoms - Symptoms include nasal congestion, sore throat and dry cough. Onset was 10 day(s) ago. Associated symptoms include shortness of breath. Note for Cold symptoms: chest tightnessSome shortness of breath. End: 15-Feb-2018 8:41 Encounter Diagnosis: Current nonsmoker (Renamed from Current non-smoker), BMI 38.0- 38.9,adult, Sore throat, URI (upper respiratory infection), Bruit of right carotid artery, Wheezing, Cough [facility] Office Visit On: 16-Apr-2017 7:13 Encounter Reason: Sinus pain - The onset of the pain has been acute and has been occurring for 10 days. The pain is characterized as mild and a pressure sensation., End: 16-Apr-2017 9:25 [ADDITIONAL REASON] Cough - Symptoms include cough, dyspnea, wheezing, runny nose, stuffy nose and sore throat, while symptoms do not include chills or fever. Cough onset was sudden 10 day(s) ago. Encounter Diagnosis: Current nonsmoker (Renamed from Current non-smoker), BMI 32.0-32.9,adult, Cough, Abnormal lung sounds, Bronchitis, Fever and chills [facility] Office Visit On: 17-Jul-2016 11:02 Encounter Reason: Sinusitis/ - The duration of the symptoms are 2 weeks The course has been gradually worsening. The sinusitis/ has no relieving factors. Associated features include The symptoms have been associated with End: 17-Jul-2016 11:16 cough, nasal discharge/stuffy nose and sinus pain.Encounter Diagnosis: Current nonsmoker (Renamed from Current non-smoker), Pharyngitis, acute [facility] Office Visit On: 07-Mar-2015 7:02 Encounter Reason: Flu Like Symptoms - The last clinic visit was 5 day(s) ago. Symptoms include chills, body aches, nasal congestion, scratchy throat, sore throat, hoarseness, dry cough and headache. Onset was sudden. The End: 07-Mar-2015 7:21 patient describes this as moderate in severity and worsening. Note for Flu like symptoms: feel feverish. ache all over. use otc meds. not help.whitish sputum. 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 No changes in management were made at the last visit. Symptoms include nasal congestion, cheek pressure, upper tooth pain, forehead pain and cough, w End: 13-Sep-2014 9:11 hile symptoms do not include ear fullness or ear pain. Onset was sudden. The symptoms occur constantly. The patient describes this as moderate in severity and worsening. Current treatment includes oral antihistamine and oral decongestant. Encounter Diagnosis: Sinus infection, Facial pain, acute [facility] Office Visit On: 23-May-2014 9:01 Encounter Reason: Diarrhea - The onset of the diarrhea has been acute and has been occurring in a persistent pattern for 1 week. The course has been constant. The stools are watery. The volume of the stools is small. The End: 23-May-2014 9:40 symptoms have been associated with abdominal pain.Encounter Diagnosis: Diarrhea (787.91), Abdominal pain [facility] Office Visit On: 21-May-2014 9:12 Encounter Reason: Diarrhea - The onset of the diarrhea has been sudden and has been occurring in a persistent pattern for 4 days. The course has been constant. The stools are watery and foul smelling. The volume of the s End: 21-May-2014 9:38 tools is normal. The symptoms have been associated with nausea, weakness, drink well water and recent antibiotics (started augmentin 05/05 ), while the symptoms have not been associated with vomiting.Encounter Diagnosis: Diarrhea (787.91), Nausea, Abdominal pain [facility] Office Visit On: 02-May-2014 8:03 Encounter Reason: Sinus pain - The onset of the pain has been acute and has been occurring in a persistent pattern for 2 weeks. The course has been constant. The pain is characterized as moderate and a pressure sensation End: 02-May-2014 12:13 . The pain is described as being located in both sides. The symptoms have been associated with eye congestion and sore throat., [ADDITIONAL REASON] Cough - The last clinic visit was 2 week(s) ago. Symptoms include cough, wheezin g, runny nose, stuffy nose and sore throat. The cough is described as productive. Cough onset was sudden 2 week(s) ago. The cough occurs constantly. The episodes last for 14 days. Symptoms are described as moderate in severity and worsening. Associated symptoms include postnasal drainage and hoarseness. Previous presentation included a cough, a runny nose, a sore throat and hoarseness. Encounter Diagnosis: Cough (786.2), BRONCHITIS, NOT SPECIFIED ACUTE OR CHRONIC (490.), Wheezing (786.07) [facility] Phone Encounter On: 23-Oct-2013 18:02 Encounter Diagnosis: Microcytosis End: 23-Oct-2013 18:04 [facility] Office Visit On: 16-Oct-2013 16:45 Encounter Reason: Follow up for chronic medical issues - The patient feels well with no complaints, has decreased energy level (cause working 7 days a week) and is sleeping poorly (cause of arms bothering her with her ne End: 16-Oct-2013 21:31 w job). Patient has been compliant with instructions. Current medication use: no side effects and compliant with dosing regimen. Patient sleeps 6 hours per night. Nutrition: inappropriate diet, suppleme ntal vitamins and low salt diet. The medical issues the patient is following up for include All identified problems below, depression (anxiety), gastric reflux, high blood pressure, osteoporosis/osteope sophia and other (LBP, vertigo). Note for Follow up for chronic medical issues: No routine labs done for todays visit.- her leg cramps better and bp is good- she is taking vit d - mood ok some stress- at work working alot- - no gerd Encounter Diagnosis: Depressive Disorder (311.), Gallbladder polyp, VITAMIN D DEFICIENCY (Renamed from Avitaminosis D), Microcytosis, GERD (gastroesophageal reflux disease), Elevated LFT (794.8) [facility] Lab Order On: 22-Aug-2013 11:52 Encounter Diagnosis: Elevated LFT (794.8), Gallbladder polyp End: 22-Aug-2013 12:00 [facility] Phone Encounter On: 08-Aug-2013 15:28 Encounter Diagnosis: Elevated LFT (794.8) End: 08-Aug-2013 15:30 [facility] Lab Order On: 18-Jul-2013 8:54 Encounter Diagnosis: Elevated LFT (794.8) End: 18-Jul-2013 8:55 [facility] Office Visit On: 12-Jul-2013 16:06 Encounter Reason: Follow up tests - Diagnostic tests include other (labs). Date: (05/2013). Note for Discuss procedure results: she gives

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
--- OUTSIDE RECORDS SUMMARY | 2018-03-29 23:02 | XMS RPT_ITS ---
:1955 Author Organization OHIP Care Team Providers Name Role Phone RAMU JACOME Referring Unavailable RAMU JACOME Attending Unavailable Rosangela Mulligan Attending Unavailable Fast, Zoe Primary Care Unavailable SravaniesaMarzena Attending Unavailable CiesaMarzena Referring Unavailable Fast, Zoe Primary Care Unavailable SravaniesMarzena rajput Attending Unavailable Ciesa, Marzena Referring Unavailable Fast, Zoe Primary Care Unavailable PROBLEMS PROBLEMS DATE TYPE CONDITION / CODE ATTENDING STATUS SOURCE 04/16/2017 Active Encounter for NA Active [facility] screening Main [place] mammogram for Repository malignant neoplasm of breast / Z12.31(ICD-10) PROCEDURES PROCEDURES No Procedure Records FoundRESULTS RESULTS CAROTID DUPLEX Observed: 02/20/2018 Status: F Source: [facility] ULTR[facility]OUND 6:21 PM [facility]POSITORY [facility] Cardiovascular Services [address] [place] [address] Carotid Duplex Ultrasound 02/18/18 0754 MR#: [id number] Acct: [id number] Name: CLARITA LAZO Rep #: [id number] : 1955 62 From: Murtaza Polanco MD Attending Dr: Marzena Jansen NP Status: REG CLI Ordering Dr: Marzena Jansen CONSUMER ANALYST-C Date: 02/18/18 Location: [facility] Sex: F C Admitted: Reason For Study: BRUIT Rt. Velocities/BP Lt. Velocities/BP [...] 1.0. Prox ECA 95/20 cm/sec. Prox ECA 103/15 cm/sec. Rt. Vert. 50/19 cm/sec. Lt. Vert. 55/15 cm/sec. Right Extracranial There is intimal thickening but no significant atherosclerotic plaque noted in the right common carotid artery. There is intimal thickening but no significant atherosclerotic plaque noted in the right internal carotid artery. There is homogeneous, smooth atherosclerotic plaque noted in the right external carotid artery. Antegrade flow is noted in the right vertebral artery. Left Extracranial There is intimal thickening but no significant atherosclerotic plaque noted in the left common carotid artery. There is intimal thickening but no significant atherosclerotic plaque noted in the left internal carotid artery. There is heterogeneous, smooth atherosclerotic plaque noted in the left external carotid artery. Antegrade flow is noted in the left vertebral artery. Procedure Carotid Duplex [id number]. Exam performed in department. Interpretation Summary No significant atherosclerotic plaque or stenosis noted in the internal carotid arteries bilaterally. Flow within the vertebral arteries is antegrade bilaterally. Ordering Physician: Marzena Jansen Referring Physician: ZOE ZENG Performed By: Tracy Montero, RDCS, RVT 02/20/181819 Date Murtaza Polanco MD CC: Marzena Jansen CONSUMER ANALYST; Zoe Zeng DO Date Dictated: 02/18/18 0754 Date Transcribed: 02/20/181819 Gluer And Slicer Hand: Signed CHEST PA AND LATERAL Observed: 02/15/2018 Status: F Source: [facility] 9:24 AM [facility] REPOS[facility] Imaging Services [address] [place], [place] [address] [address] Chest PA and Lateral MR#: [id number] Acct: [id number] Name: CLARITA LAZO Rep #: [id number] : 1955 F 62 From: Darrian Caruso MD PCP: Zoe Zeng DO Status: REG CLI Study: Chest PA and Lateral Date of Exam: 02/15/18 Exam# [id number] Ordering Dr: Marzena Jansen CONSUMER ANALYST-C STUDY: X-RAY CHEST REASON FOR EXAM: Female, 62 years old. Upper respiratory tract infection. TECHNIQUE: PA and lateral views of the chest. COMPARISON: Comparison is made with prior study dated April 16, 2017. FINDINGS: The lungs are clear and expanded. Scattered calcified granulomas. There is no demonstrated pleural abnormality. Normal size heart. Normal mediastinum and rosy. Normal visualized pulmonary arteries. There is atherosclerotic calcification of the aortic arch with tortuosity. Normal visualized thoracic spine. There is degenerative osteoarthritis of the bilateral shoulders. There is no demonstrated abnormality of the visualized soft tissue structures of the upper abdomen. RAD/Chest PA and Lateral IMPRESSION: No acute abnormality is seen. Electronically Signed: Darrian Caruso MD at 10:01 EST Tel [phone], Service support , CC: Marzena Jansen NP; Zoe Zeng DO Gluer And Slicer Hand: Signed PROGRESS Observed: 08/08/2017 Status: COMPLETED Source: [place] 12:38 PM [facility] REPOSITORY HNO ID: [id number] Author: Selin Brower Service: (none) Author Type: Nurse Practitioner Type: Progress Notes Filed: 08/08/2017 1:05 PM Note Text: Subjective The history is provided by the patient. No language pathologist was used. HPI Clarita Lazo is a 62 year old female who presents today for CC of poison angela rash. This started over the past 2-3 days. She is also having itching. Symptoms are worsened by nothing. She has tried hydrocortisone cream Risk factors working in goBalto PMH not significant. BP 104/84 Pulse 91 Temp 37.3 ?C (99.1 ?F) (Left Tympanic) Resp 16 Wt 93 kg (205 lb) LMP 08/20/2001 BMI 36.03 kg/m? ALLERGIES Allergen Reactions - Environmental [Othe* pollens=sneezing - Grass Pollen sneezing,sinus congestion ACTIVE PROBLEM LIST Abdominal Pain, Epigastric Diaphragmatic Hernia Without Mention of Obstruction Or Gangrene Special Screening for Malignant Neoplasms, Colon Osteopenia Family History Problem Relation Age of Onset - Alzheimer's Disease Mother EARLY 74 - Cancer Father stomach - Diabetes Paternal Grandmother Social History Marital status: Spouse name: Years of education: Number of children: 1 Occupational History Occupation Employer Comment [employer] Social History Main Topics Smoking status: Former Smoker Packs/day: 0.50 Years: 15.00 Types: Cigarettes Quit date: 09/20/2007 Smokeless tobacco: Never Used Alcohol use: Yes 3.0 oz/week Glasses of Wine (5oz): 2 per week Drug use: No Sexual activity: Yes Partners with: Male control/protection: Surgical Review of Systems Constitutional: Negative for chills, fever and malaise/fatigue. Genitourinary: Negative for dysuria. Musculoskeletal: Negative for joint pain and myalgias. Skin: Positive for itching and rash. Neurological: Negative for headaches. Objective Physical Exam Constitutional: She is oriented to person, place, and time and well-developed, well-nourished, and in no distress. No distress. HENT: Head: Normocephalic and atraumatic. Eyes: Conjunctivae and EOM are normal. Pupils are equal, round, and reactive to light. Neck: Normal range of motion. Neck supple. Pulmonary/Chest: Effort normal. Neurological: She is alert and oriented to person, place, and time. Skin: Skin is warm and dry. Psychiatric: Affect normal. Nursing note and vitals reviewed. ASSESSMENT/PLAN: 1. Poison angela dermatitis - ICD9: 692.6, ICD10: L23.7 - Topical steriod tx with Rx for steriod cream/ointment- see orders - Anti itch therapy of Oral Benydryl and Zyrtec 10 mg By mouth daily at bedtime recommended prn - Use Benedryl spray during the day, in between use of triamcinolone cream - discussed skin care of rash - follow up if symptoms persist or worsen. - TRIAMCINOLONE ACETONIDE 0.1 % TOPICAL CREAM Start Triamcinolone 0.1% ointment 2-3 times daily for itch Allow to dry out. Tylenol and Motrin for pain and fever. If you have a fever rotate between the Tylenol and Motrin every 3 hours. Diagnosis and treatment plan were discussed and questions were answered to the patient's satisfaction. Pt acknowledged understanding of concepts and follow up plan. Specific signs and symptoms that would indicate the need for higher level of care were discussed in detail warranting prompt ER evaluation. Selin Brower APRN.PHYSICIAN INTERVENTIONAL CARDIOLOGIST CNOV Observed: 08/08/2017 Status: COMPLETED Source: [place] 12:30 PM [facility] REPOSITORY Office Visit (WSTR) CLARITA LAZO ([id number]) 1955 F Date Time Provider Department 08/08/17 12:30 PM SELIN BROWER ([facility]) [facility] During your visit today, we recorded the following information about you: Temperature Pulse Respiration Blood pressure 99.1 degrees 91/minute 16/minute 104/84 Weight 93 kg Selin Brower APRN.CNP 08/08/2017 12:37 PM Signed ASSESSMENT/PLAN: 1. Poison angela dermatitis - ICD9: 692.6, ICD10: L23.7 - Topical steriod tx with Rx for steriod cream/ointment- see orders - Anti itch therapy of Oral Benydryl and Zyrtec 10 mg By mouth daily at bedtime recommended prn - Use Benedryl spray during the day, in between use of triamcinolone cream - discussed skin care of rash - follow up if symptoms persist or worsen. - TRIAMCINOLONE ACETONIDE 0.1 % TOPICAL CREAM Start Triamcinolone 0.1% ointment 2-3 times daily for itch Allow to dry out. Tylenol and Motrin for pain and fever. If you have a fever rotate between the Tylenol and Motrin every 3 hours. Selin Brower APRN.CNP 08/08/2017 1:05 PM Signed Subjective The history is provided by the patient. No language pathologist was used. HPI Clarita Lazo is a 62 year old female who presents today for CC of poison angela rash. This started over the past 2-3 days. She is also having itching. Symptoms are worsened by nothing. She has tried hydrocortisone cream Risk factors working in [employer] PMH not significant. BP 104/84 Pulse 91 Temp 37.3 ?C (99.1 ?F) (Left Tympanic) Resp 16 Wt 93 kg (205 lb) LMP 08/20/2001 BMI 36.03 kg/m? ALLERGIES Allergen Reactions - Environmental [Othe* pollens=sneezing - Grass Pollen sneezing,sinus congestion ACTIVE PROBLEM LIST Abdominal Pain, Epigastric Diaphragmatic Hernia Without Mention of Obstruction Or Gangrene Special Screening for Malignant Neoplasms, Colon Osteopenia Family History Problem Relation Age of Onset - Alzheimer's Disease Mother EARLY 74 - Cancer Father stomach - Diabetes Paternal Grandmother Social History Marital status: Spouse name: Years of education: Number of children: 1 Occupational History Occupation Employer Comment [employer] Social History Main Topics Smoking status: Former Smoker Packs/day: 0.50 Years: 15.00 Types: Cigarettes Quit date: 09/20/2007 Smokeless tobacco: Never Used Alcohol use: Yes 3.0 oz/week Glasses of Wine (5oz): 2 per week Drug use: No Sexual activity: Yes Partners with: Male control/protection: Surgical Review of Systems Constitutional: Negative for chills, fever and malaise/fatigue. Genitourinary: Negative for dysuria. Musculoskeletal: Negative for joint pain and myalgias. Skin: Positive for itching and rash. Neurological: Negative for headaches. Objective Physical Exam Constitutional: She is oriented to person, place, and time and well-developed, well-nourished, and in no distress. No distress. HENT: Head: Normocephalic and atraumatic. Eyes: Conjunctivae and EOM are normal. Pupils are equal, round, and reactive to light. Neck: Normal range of motion. Neck supple. Pulmonary/Chest: Effort normal. Neurological: She is alert and oriented to person, place, and time. Skin: Skin is warm and dry. Psychiatric: Affect normal. Nursing note and vitals reviewed. ASSESSMENT/PLAN: 1. Poison angela dermatitis - ICD9: 692.6, ICD10: L23.7 - Topical steriod tx with Rx for steriod cream/ointment- see orders - Anti itch therapy of Oral Benydryl and Zyrtec 10 mg By mouth daily at bedtime recommended prn - Use Benedryl spray during the day, in between use of triamcinolone cream - discussed skin care of rash - follow up if symptoms persist or worsen. - TRIAMCINOLONE ACETONIDE 0.1 % TOPICAL CREAM Start Triamcinolone 0.1% ointment 2-3 times daily for itch Allow to dry out. Tylenol and Motrin for pain and fever. If you have a fever rotate between the Tylenol and Motrin every 3 hours. Diagnosis and treatment plan were discussed and questions were answered to the patient's satisfaction. Pt acknowledged understanding of concepts and follow up plan. Specific signs and symptoms that would indicate the need for higher level of care were discussed in detail warranting prompt ER evaluation. Selin Brower APRN.PHYSICIAN INTERVENTIONAL CARDIOLOGIST Referring Provider: SELF [200] Allergies As of Date: 08/08/2017 Noted Allergy Reaction ENVIRONMENTAL [Other] 08/19/2005 Comments: pollens=sneezing GRASS POLLEN 08/19/2005 Comments: sneezing,sinus congestion Date Reviewed: 08/08/2017 Reviewed by: Delphine Stewart Ma - Fully Assessed Reason for Visit: Rash [1087] Cmt: x 4 days Primary Visit Diagnosis:Poison angela dermatitis [L23.7] Order(s):triamcinolone acetonide (KENALOG) 0.1 % creamApply 1 application to affected area three times daily. Apply sparingly to area for rash/itching.Disp: 30 gRfl: 0 Prescriptions as of 08/08/2017 Sig: PROVITE ORAL Take by mouth. PANTOPRAZOLE 40 MG TABLET,DEL* Take 1 tablet by mouth once d* TRIAMCINOLONE ACETONIDE 0.1 %* Apply 1 application to affect* Problem List As Of Date 08/08/2017 Noted Resolved Postmenopausal atrophic vaginitis [N95.2] INVALID FOR*12/20/2015 Abdominal pain, epigastric [R10.13] INVALID FOR* Diaphragmatic hernia without mention of obstruc*INVALID FOR* Special screening for malignant neoplasms, colo*INVALID FOR* Osteopenia [M85.80] INVALID FOR* Other instructions from your clinician: ASSESSMENT/PLAN: 1. Poison angela dermatitis - ICD9: 692.6, ICD10: L23.7 - Topical steriod tx with Rx for steriod cream/ointment- see orders - Anti itch therapy of Oral Benydryl and Zyrtec 10 mg By mouth daily at bedtime recommended prn - Use Benedryl spray during the day, in between use of triamcinolone cream - discussed skin care of rash - follow up if symptoms persist or worsen. - TRIAMCINOLONE ACETONIDE 0.1 % TOPICAL CREAM Start Triamcinolone 0.1% ointment 2-3 times daily for itch Allow to dry out. Tylenol and Motrin for pain and fever. If you have a fever rotate between the Tylenol and Motrin every 3 hours. Prescriptions ordered this encounter Disp Refills Start End TRIAMCINOLONE ACETONIDE 0.1 % TOPICA* 30 g 0 08/08/2017 Route: TOPICAL Sig: Apply 1 application to affected area three times daily. Apply sparingly to area for rash/itching. Medications Discontinued During This Encounter nystatin-triamcinolone (MYCOLOG II) * 3 03/16/2017 08/08/2017 Class: Historical Med Route: TOPICAL Sig: Apply to affected area twice daily. Disc: Course of therapy completed Encounter Status:Closed by SELIN BROWER CNP on 08/08/17 CNCO Observed: 04/16/2017 Status: COMPLETED Source: [place] 1:32 PM [facility] REPOSITORY HNO ID: [id number] Author: Mammography Coordinator Service: (none) Author Type: Physician Type: Letter Filed: 04/19/2017 11:33 PM Note Text: April 16, 2017 PID: [id number] Clarita Oliveros [address] [place] [address] Dear Ms. Lazo, We are pleased to inform you that the results of your recent breast imaging exam on 04/16/2017 are normal. Early detection of cancer is very important. We also understand recommendations regarding breast cancer screening are controversial. Please discuss with your primary care provider which strategy is best for you and whether a mammogram is right for you. Your imaging studies and report will be kept on file at [facility] as part of your permanent medical record and are available for your continuing care. Thank you for allowing us to help in meeting your health care needs. Sincerely, Dr. Gorman Interpreting Radiologist [facility] (Normal over 40) CHEST PA AND LATERAL Observed: 04/16/2017 Status: F Source: [facility] 10:28 AM [facility]POS[facility] Imaging Services [address] [place] [address] Chest PA and Lateral MR#: [id number] Acct: [id number] Name: CLARITA LAZO Rep #: [id number] : 1955 F 61 From: Darrian Caruso MD PCP: Zoe Zeng DO Status: REG CLI Study: Chest PA and Lateral Date of Exam: 04/16/17 Exam# [id number] Ordering Dr: Rosangela Mulligan DO STUDY: X-RAY CHEST REASON FOR EXAM: Female, 61 years old. Cough. TECHNIQUE: PA and lateral views of the chest. COMPARISON: Comparison is made with prior study dated August 15, 2010. FINDINGS: The lungs are clear and expanded. Scattered calcified granulomas. There is no demonstrated pleural abnormality. Normal size heart. Normal mediastinum and rosy. Normal visualized pulmonary arteries. There is atherosclerotic calcification of the aortic arch with tortuosity. There is demineralization of the osseous structures. Normal visualized ribs, clavicles, and shoulders. There is no demonstrated abnormality of the visualized soft tissue structures of the upper abdomen. RAD/Chest PA and Lateral IMPRESSION: No acute abnormality is seen. Electronically Signed: Darrian Caruso MD at 14:33 EST Tel [phone], Service support , CC: Zoe Zeng DO; Rosangela Mulligan DO Gluer And Slicer Hand: Signed PROGRESS Observed: 04/16/2017 Status: COMPLETED Source: [place] 9:07 AM [facility] REPOSITORY HNO ID: [id number] Author: Ramu Jacome Service: (none) Author Type: Physician Type: Progress Notes Filed: 04/16/2017 9:33 AM Note Text: Clarita Lazo is a 61 year old who presents for her annual gynecologic exam with complaints, URI was seen at PCP office for this.. Postmenopausal: yes HRT use: No. 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- torn miniscus/coreas's cyst - Bunion of great toe of right foot - Diaphragmatic hernia without mention of obstruction or gangrene - Irregular menstrual cycle Irregular periods resolved - Osteopenia - PMH - PAST MEDICAL HISTORY OF STRESS, FATIQUE, - Wrist fracture, left 12/2010 PAST SURGICAL HISTORY Procedure Laterality Date - COLONOSCOP W/ OR W/O BRSH SPEC 02/22/12 Colonoscopy repeat 10 years - EGD W/O OR W/BRUSH/WASH 02/22/12 EGD - LIGATE FALLOPIAN TUBE Tubal ligation - PAST SURGICAL HISTORY OF LEFT FOOT REPAIR AND CYSTS - PAST SURGICAL HISTORY OF lower back discs, FAMILY HISTORY Problem Relation Age of Onset - Alzheimer's Disease Mother EARLY 74 - Cancer Father stomach - Diabetes Paternal Grandmother SOCIAL HISTORY Social History Substance Use Topics - Smoking status: Former Smoker Packs/day: 0.50 Years: 15.00 Types: Cigarettes Quit date: 09/20/2007 - Smokeless tobacco: Never Used - Alcohol use 3.0 oz/week 2 Glasses of Wine (5oz) per week REVIEW OF SYSTEMS Abdomen: No abdominal pain, nausea, vomiting, diarrhea, or constipation. No bloating, early satiety, indigestion, or increased flatulence. Bladder: No dysuria, gross hematuria, urinary frequency, urinary urgency, or incontinence Breast: No breast lumps, nipple d/c, overlying skin changes, redness or skin retraction Allergies and current medication updated:Yes EXAM: LMP 08/20/2001 GENERAL: pleasant, female in no apparent distress HEENT: Normocephalic, atraumatic, mucus membranes moist and no lesions NECK: Supple, full range of motion, no adenopathy and thyroid normal DERMATOLOGY: Normal, without lesions, non-icteric and non-hirsute BREAST: soft, non-tender, symmetric, no dominant mass, normal nipple-areolar complex, no lymphadenopathy and no nipple discharge CHEST: Normal inspiratory effort ABDOMEN: soft, non-tender and no masses PELVIC: external genitalia normal, normal Bartholin's glands, urethra, Epping's glands, no vulvar lesions, no cervical lesions, good vaginal support, physiologic discharge present, normal appearing perineal body and perianal region BIMANUAL: uterus normal size, shape and consistency, no adnexal masses and non-tender RECTOVAGINAL: deferred. NEURO: alert and oriented x3,exam grossly non-focal EXTREMITIES: normal ASSESSMENT/PLAN: 1) Health maintenance: Pap/HPV up to date. Mammogram up to date Colon cancer screening: up to date with screening other health screens up to date 2) Follow up one year or sooner as needed Ramu Jacome MD CNOV Observed: 04/16/2017 Status: COMPLETED Source: [place] 9:00 AM [facility] REPOSITORY Office Visit (WOOB) CLARITA LAZO ([id number]) 1955 F Date Time Provider Department 04/16/17 9:00 AM RAMU JACOME During your visit today, we recorded the following information about you: Blood pressure Weight Height 116/78 90.7 kg 1.607 m Ramu Jacome MD 04/16/2017 9:33 AM Signed Clarita Lazo is a 61 year old who presents for her annual gynecologic exam with complaints, URI was seen at PCP office for this.. Postmenopausal: yes HRT use: No. 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- torn miniscus/coreas's cyst - Bunion of great toe of right foot - Diaphragmatic hernia without mention of obstruction or gangrene - Irregular menstrual cycle Irregular periods resolved - Osteopenia - PMH - PAST MEDICAL HISTORY OF STRESS, FATIQUE, - Wrist fracture, left 12/2010 PAST SURGICAL HISTORY Procedure Laterality Date - COLONOSCOP W/ OR W/O BRSH SPEC 02/22/12 Colonoscopy repeat 10 years - EGD W/O OR W/BRUSH/WASH 02/22/12 EGD - LIGATE FALLOPIAN TUBE Tubal ligation - PAST SURGICAL HISTORY OF LEFT FOOT REPAIR AND CYSTS - PAST SURGICAL HISTORY OF lower back discs, FAMILY HISTORY Problem Relation Age of Onset - Alzheimer's Disease Mother EARLY 74 - Cancer Father stomach - Diabetes Paternal Grandmother SOCIAL HISTORY Social History Substance Use Topics - Smoking status: Former Smoker Packs/day: 0.50 Years: 15.00 Types: Cigarettes Quit date: 09/20/2007 - Smokeless tobacco: Never Used - Alcohol use 3.0 oz/week 2 Glasses of Wine (5oz) per week REVIEW OF SYSTEMS Abdomen: No abdominal pain, nausea, vomiting, diarrhea, or constipation. No bloating, early satiety, indigestion, or increased flatulence. Bladder: No dysuria, gross hematuria, urinary frequency, urinary urgency, or incontinence Breast: No breast lumps, nipple d/c, overlying skin changes, redness or skin retraction Allergies and current medication updated:Yes EXAM: LMP 08/20/2001 GENERAL: pleasant, female in no apparent distress HEENT: Normocephalic, atraumatic, mucus membranes moist and no lesions NECK: Supple, full range of motion, no adenopathy and thyroid normal DERMATOLOGY: Normal, without lesions, non-icteric and non-hirsute BREAST: soft, non-tender, symmetric, no dominant mass, normal nipple-areolar complex, no lymphadenopathy and no nipple discharge CHEST: Normal inspiratory effort ABDOMEN: soft, non-tender and no masses PELVIC: external genitalia normal, normal Bartholin's glands, urethra, Epping's glands, no vulvar lesions, no cervical lesions, good vaginal support, physiologic discharge present, normal appearing perineal body and perianal region BIMANUAL: uterus normal size, shape and consistency, no adnexal masses and non-tender RECTOVAGINAL: deferred. NEURO: alert and oriented x3,exam grossly non-focal EXTREMITIES: normal ASSESSMENT/PLAN: 1) Health maintenance: Pap/HPV up to date. Mammogram up to date Colon cancer screening: up to date with screening other health screens up to date 2) Follow up one year or sooner as needed Ramu Jacome MD Referring Provider: SELF [200] Allergies As of Date: 04/16/2017 Noted Allergy Reaction ENVIRONMENTAL [Other] 08/19/2005 Comments: pollens=sneezing GRASS POLLEN 08/19/2005 Comments: sneezing,sinus congestion Date Reviewed: 04/16/2017 Reviewed by: Ramu Jacome - Fully Assessed Reason for Visit: Yearly Exam With Mammogram [188] Visit Diagnoses:Encounter for gynecological examination (general) (routine) without abnormal findings [Z01.419] Encounter for screening mammogram for breast cancer [Z12.31] Order(s):MARILYN SCREENING [[id number]] Order #: [id number] FUTURE Prescriptions as of 04/16/2017 Sig: PROVITE ORAL Take by mouth. NYSTATIN-TRIAMCINOLONE 100,00* Apply to affected area twice * PANTOPRAZOLE 40 MG TABLET,DEL* Take 1 tablet by mouth once d* Medication notes this encounter IRON ORAL >> Darwin Vega Ma 04/16/2017 9:06 AM >> DARWIN VEGA MA WedApr 16, 2017 9:06 AM No longer taking VITAMIN D-3 ORAL >> Darwin Vega Ma 04/16/2017 9:05 AM >> DARWIN VEGA MA WedApr 16, 2017 9:05 AM No longer taking CALCIUM + D 600 MG (1,500 MG)-200 UNIT TABLET >> Darwin Vega Ma 04/16/2017 9:05 AM >> DARWIN VEGA MA WedApr 16, 2017 9:05 AM No longer taking Problem List As Of Date 04/16/2017 Noted Resolved Postmenopausal atrophic vaginitis [N95.2] INVALID FOR*12/20/2015 Abdominal pain, epigastric [R10.13] INVALID FOR* Diaphragmatic hernia without mention of obstruc*INVALID FOR* Special screening for malignant neoplasms, colo*INVALID FOR* Osteopenia [M85.80] INVALID FOR* Medications Discontinued During This Encounter FERROUS SULFATE (IRON ORAL) 04/16/2017 Class: Historical Med Route: ORAL Sig: Take by mouth. Disc: Reason for discontinue is not on file. CALCIUM CARBONATE/VITAMIN D3 (VITAMI* 04/16/2017 Class: Historical Med Route: ORAL Sig: Take by mouth. Disc: Reason for discontinue is not on file. CALCIUM + D 600 MG-200 UNIT TAB 0 03/19/2005 04/16/2017 Class: Historical Med Route: ORAL Si tabs daily Disc: Reason for discontinue is not on file. Disposition: Return in 1 year (on 04/16/2018) for Annual Exam. Follow-up and Disposition History Recorded Encounter Status:Closed by RAMU JACOME MD on 04/16/17 [facility] SCREENING Observed: 04/16/2017 Status: F Source: [place] 8:55 AM [facility] REPOSITORY * * *Final Report* * * DATE OF EXAM: Apr 16 2017 8:55AM WOW [id number] - [facility] SCREENING / PROCEDURE REASON: Encounter for screening mammogram for malignant neoplasm of breast * * * * Physician Interpretation * * * * RESULT: #[id number] - [facility] SCREENING BILATERAL DIGITAL SCREENING MAMMOGRAM WITH CAD: 04/16/2017 HISTORY: Encounter For Screening Mammogram For Malignant Neoplasm Of Breast\ Screening Mammogram - patient reports NO breast symptoms /priors available for comparison. RESULT: TECHNIQUE: The study was acquired using full field digital technology and interpreted from soft copy. Current study was also evaluated with a Computer Aided Detection (CAD). Comparison is made to exams dated: 12/24/2015 mammogram - [facility], 09/27/2014 mammogram - [facility], 09/07/2014 mammogram, and 09/01/2013 mammogram - [facility]. There are scattered fibroglandular elements in both breasts. No significant masses, calcifications, or other findings are seen in either breast. There has been no significant interval change. IMPRESSION: NEGATIVE There is no mammographic evidence of malignancy.A 1 year screening mammogram is recommended. Mirlande Gorman M.D. /tracey:04/16/2017 13:32:12 Ase Master Mechanic: Indigo ARIZA([place])(Mayda), [facility] letter sent: Normal over 40 Mammogram BI-RADS: 1 Negative Gluer And Slicer Hand: Tracey Transcribe Date/Time: Apr 16 2017 8:56A Dictated by: MIRLANDE GORMAN MD This examination was interpreted and the report reviewed and electronically signed by: MIRLANDE GORMAN MD on Apr 16 2017 1:32PM EST [id number] ALLERGIES ALLERGIES DATE TYPE / CODE NAME / CODE REACTION SEVERITY SOURCE 09/27/2014 Drug No Known Unknown [place] Allergy/826368117(S Allergies/F0 [facility]OM[facility]) [id number]([facility]) Repository 08/19/2005 Miscellaneous OTHER [facility] Allergy/127001105([facility] NOMED CT) Repository 08/19/2005 DRUG GRASS POLLEN [facility] INGREDI/[id number]([facility] NOMED CT) Repository ENCOUNTERS ENCOUNTERS ADMIT/DISCHARGE ACCOUNT ADMITTING ENCOUNTER LOCATION SOURCE NUMBER CLASS 02/18/2018 [id number] Ambulatory [facility] ing:[facility] Repository 02/15/2018 [id number] Ambulatory [facility] ing:[facility] Repository 08/08/2017/08/11/19 [id number] Ambulatory [address] Repository 04/16/2017 [id number] Ambulatory [facility] ing:[facility] Repository 04/16/2017/04/19/19 [id number] Ambulatory [address] Repository 04/16/2017/04/16/[id number] Repository PAYERS PAYERS ENCOUNTER GUARANTOR PAYER SUBSCRIBER SOURCE 02/18/2018 CLARITA Benson Primary CLARITA Saab [id number] Insurance:ANTHEMPolic CROWNERDOB: [place] y [place]: [id number] [id number] Repository [address]Hro: [phone] rambo Date:4775-02-99KC [phone] () [address], [place] [address]VB: 02/18/2018 Secondary NOT GIVENUNK [facility] Insurance:SELF PAY [facility] Number: Effective Repository Date:2018-02-15 02/15/2018 Clarita Benson Primary Clarita Saab [id number] Insurance:ANTHEMPolic CrownerDOB: [facility] y Number: [id number] [id number] Repository [address]Vef: [phone] rambo Date:4898-57-63GS [phone] () [address] [address]NB: 02/15/2018 Secondary NOT GIVENUNK [place] Insurance:SELF PAY [facility] Number: Effective Repository Date:2018-02-15 04/16/2017 Clarita Benson Primary Clarita Saab [id number] Insurance:ANTHEMPolic CrownerDOB: [facility] y Number: [id number], [place] [id number] Repository [address]Lip: [phone] rambo Date:4551-85-92OD [phone] () [address], [place] [address]II: 04/16/2017 Secondary NOT GIVENUNK [facility]LF [facility]Y [facility]: Effective Repository Date:2017-04-16
--- OUTSIDE RECORDS SUMMARY | 2018-03-29 23:02 | XMS RPT_ITS | Continuity of Care Document ---
:1955 Author Organization [facility] Address [address] [place] [address] Phone Care Team Providers Name Role Phone [...] stress counselingI will contact Layne Dior at [facility] for Traumatic stress to see if counseling [...] and Lateral Result: Comments: See Note; NOTES: [facility] Imaging Services [address] [place] [address] Chest PA and Lateral MR#: [id number] Acct: [id number] Name: CLARITA LAZO Rep #: [id number] : 1955 F 62 From: Darrian Caruso MD PCP: Zoe Harper DO Status: REG CLI Study: Chest PA and Lateral Date of Exam: 02/15/18 Exam# [id number] Ordering Dr: Marzena Jansen MEDIA OPERATOR-C STUDY: X-RAY CHES T REASON FOR EXAM: [...] Darrian Caruso MD at 10:01 EST Tel [phone], Service support , CC: Marzena Jansen MEDIA OPERATOR; Zoe Harper DO Acute Care Certified Nursing Assistant: Signed 16-Apr-2017 Chest PA and Lateral Result: Comments: See Note; NOTES: [facility] Imaging Services [address] [place] [address] Chest PA and Lateral MR#: [id number] Acct: [id number] Name: CLARITA LAZO Rep #: [id number] : 1955 F 61 From: Darrian Caruso MD PCP: Zoe Harper DO Status: REG CLI Study: Chest PA and Lateral Date of Exam: 04/16/17 Exam# [id number] Ordering Dr: Rosangela Mulligan DO STUDY: X-RAY [...] Darrian Caruso MD at 14:33 EST Tel [phone], Service support , CC: Zoe Harper DO; Rosangela Mulligan DO Acute Care Certified Nursing Assistant: Signed 03-Oct-2014 History and Physical Exam Result: Comments: See Note; NOTES: [facility] Medical Records Department [address] [place] [address] History and Physical 10/03/14 1212 MR#: [id number] Acct: [id number] Name: CLARITA LAZO Rep #: [id number] : 1955 59 From: Phu Juan PA-C PCP: Zoe Harper DO Status: PRE IN Location: [facility] DATE OF SERVICE: This is Phu Juan [...] her normal daily activities. 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 The patient also has had periods where knee was going to give out on her secondary to the pain. Feels she has otherwise been in good health . She was recently treated by Dr. Harper for a sinus infection. At this time, [...] Dr. Coles in 2000, tubal ligation in [facility], and right foot surgery in [address] Bauman. The patient does report that she has difficult time with anesthesia, she has a hard time waking up. She does wear glasses and dentures. SOCIAL HISTORY: The germaine ent is with 1 child. 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. ALLERGIES: The patient denies any known allergies. MEDICATIONS: For complete list of the patient's presently prescribed medications, urjy-scl-gbunnzn medications, supplements, as well as vitamins and [...] Foster. She will then be admitted to [facility], where she will continu e with her postop medical care, pain management and therapy. Anticipated length of stay is 2 midnight stays. NABOR Slaughter T: CASSIDY JOB: [id number] 10/03/14 1421 <Electronically stacie d by Phu Juan PA-C> Date: Time: Phu Juan PA-C CC: Zoe Harper DO; Phu TOMLIN Date Dictated: 10/03/141211 Date Transcri bed: 10/03/141211 Acute Care Certified Nursing Assistant: Signed ____ I have re-examined the patient. There are no clinical changes since date of exam. ____ See Progress Notes for Changes ____ Dictated on Admiss ion Date: Time: Signature: 06-Jun-2014 Lower Ext Joint Only (Routine) Result: Comments: See Note; NOTES: [facility] Imaging Services [address] [place] [address] MRI Report MR#: [id number] Acct: [id number] Name: CLARITA LAZO Rep #: [id number] D OB: 1955 F 58 From: Jason Llanos MD PCP: Zoe Harper DO Status: REG CLI Study: Lower Ext Joint Only (Routine) Date of Exam: 06/06/14 Exam# [id number] Ordering Dr: Phu Juan PA-C STUDY: MRI [...] at 20:16 EDT Tel , Service support [phone], CC: Zoe Harper DO; Phu TOMLIN Acute Care Certified Nursing Assistant: Signed 16-Apr-2014 Spine Lumbar W/WO Contrast Result: Comments: See Note; NOTES: [facility] Imaging Services [address] [place] [address] MRI Report MR#: [id number] Acct: [id number] Name: CLARITA LAZO Rep #: [id number] D OB: 1955 F 58 From: Jamal Sauceda MD PCP: Zoe Harper DO Status: REG CLI Study: Spine Lumbar W/WO Contrast Date of Exam: 04/16/14 Exam# [id number] Ordering Dr: Jamal Coles STUDY: MRI L [...] a t 21:59 EST , Service support [phone], CC: Zoe Harper DO; Jamal Coles Acute Care Certified Nursing Assistant: Signed 15-Aug-2013 Liver Result: Comments: See Note; NOTES: [facility] Imaging Services [address] [place] [address] Ultrasound Report MR#: [id number] Acct: [id number] Name: CLARITA LAZO Rep #: [id number] : 1955 F 58 From: Darrian Caruso MD PCP: Zoe Harper DO Status: REG CLI Study: Liver Date of Exam: 08/15/13 Exam# [id number] Ordering Dr: Zoe Harper DO STUDY: ABDOMINAL [...] MD at 9:16 EDT , Service support [phone], CC: Zoe Harper DO Acute Care Certified Nursing Assistant: Signed Family History Unknown Family Member Name Dates Details Father Comments: at 33 from some type of stomach cancer and pneumonia Status: Active Social History Name Dates Details Alcohol Use Comments: Occasional alcohol use Status: Active Alcohol Use Comments: Weekeds Status: Active Caffeine Use Status: Active Living Situation Comments: Status: Active 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 Status: Active Tobacco Use Comments: Recently quit tobacco use Status: Inactive Smoking Status Name Dates Details Former smoker Vital Signs Date Test Result Details 32-Jyo-18681:58 Temperature 98.1 f Comments: Method: Temporal Pulse [...] Value Details :09 Rapid Strep Test, Office (96813) Rapid Strep Test, Office Negative (Normal) 69-Jwq-34249:43 KATHERINE CULTURE-OTHER (20458) Comments: PATIENT NOT FASTINGPERFORMED BY: [facility] Abtdby[address] [facility] [id number] Information: SRC:TH Result 1 RRF (Normal) Comments: Routine respiratory jonathan Upper Respiratory Culture Final report (Normal) 40-Xco-310514:14 Rapid Strep Test, Office (15662) Rapid Strep Test, Office Negative (Normal) :07 FLU A+B DIRECT AG, (RAPID) (26355) FLU A+B DIRECT AG, (RAPID) negative a/b (Normal) :06 Rapid Strep Test, Office (67006) Rapid Strep Test, Office Negative (Normal) 7-Jli-453345:34 Basic Metabolic Profile (BMP) Comments: Test performed at:[facility] [address] [place] [address] GAP 6 (Normal) Range: 5-15 [...] 7-18 GLU 91 mg/dL (Normal) Range: 70-110 9-Ufk-060485:34 MRSA/SAID SCREEN Comments: Test performed at:[facility] [address] [place] [address] MRSA+SAID SCRN See Note (Normal) Comments: MRSA/SAID SCRNCopy of report sent to Infection Control Printer MS#[id number] 09/29/14 3194 DGRADY. S. AUREUS S. aureus PositiveMRSA MRSA Negative 2-Auj-150023:34 Urinalysis, Routine (Dipstick) Comments: How was Urine Obtained? CLEAN CATCHTest performed at:[facility] [address] [place] [address] LEUK ESTERASE Negative /ul (Normal) OCCULT BLOOD-UR [...] Negative (Normal) Comments: PATIENT NOT FASTINGPERFORMED BY: [employer] [facility] [id number] 15 A+B, EIA 9-Lgm-321173: Occult Blood, Fecal, Negative (Normal) Comments: PATIENT NOT FASTINGPERFORMED BY: [employer] Tydpne3920 [facility] [id number] 15 IA 0-Rxf-044136:15 Ova + Parasite Exam Comments: PATIENT NOT FASTINGPERFORMED BY: [employer] Taasgi7933 [facility] [id number] Result 1 NOCP (Normal) Comments: No ova, cysts, or parasites seen. Ova + Parasite Exam Final report (Normal) Comments: These results were obtained using wet preparation(s) and trichromestained smear. This test does not include testing for Cryptosporidiumparvum, Cyclospora, or Microsporidia. :15 Stool Culture Comments: PATIENT NOT FASTINGPERFORMED BY: [employer] Eerriv3159 [facility] [id number] Information: SRC:ST STOOL E coli Shiga Toxin EIA Negative (Normal) Result 1 NCI (Normal) Comments: No Campylobacter species isolated. Campylobacter Culture Final report (Normal) Result 1 NSS (Normal) Comments: No Salmonella or Shigella recovered. Salmonella/Shigella Screen Final report (Normal) 2-Uhh-747297:15 White Blood Cells (WBC), Comments: PATIENT NOT FASTINGPERFORMED BY: [employer] [id number] Stool Result 1 NWBC (Normal) Comments: No white blood cells seen. White Blood Cells (WBC), Final report (Normal) Stool 21-May-20149:40 CBC & PLATELETS (AUTO) Comments: PATIENT NOT FASTINGPERFORMED BY: [employer] [id number] Information: 968344,G95351 (95992) Platelets 259 {x10E3/uL} (Normal) Range: 150-379 RDW 15.0 % (Normal) Range: 12.3-15.4 MCHC 33.3 g/dL (Normal) Range: 31.5-35.7 MCH 28.7 pg (Normal) Range: 26.6-33.0 MCV 86 fL (Normal) Range: 79-97 Hematocrit 45.9 % (Normal) Range: 34.0-46.6 Hemoglobin 15.3 g/dL (Normal) Range: 11.1-15.9 RBC 5.33 {x10E6/uL} (Abnormal) Range: 3.77-5.28 WBC 8.5 {x10E3/uL} (Normal) Range: 3.4-10.8 82-Vhp-640538:18 Serum Creatinine AND GFR Comments: Test performed at:[facility] [address] [place], [place] [address] ; handled by Dr. Coles EST GFR - AA 110 mL/min (Normal) EST GFR 91 mL/min (Normal) CREAT,SERUM 0.7 mg/dL (Normal) Range: 0.6-1.0 72-Lzn-758655:38 AMA <20.0 {Units} (Normal) Range: 0.0-20.0 Comments: Negative 0.0 - 20.0Equivocal 20.1 - 24.9Positive >24.9Mitochondrial (M2) Antibodies are found in 90-96% ofpatients with primary biliary cirrhosis.Performed at: [facility]llbuv2957 [place], [place] [address]Axt Director: Joao Begum MD, Phone: [phone] 38-Mja-975262:39 CBCD ALC 2.70 {X10_3/ul} (Normal) Range: 0.83-4.51 [...] - 250 nmol/L)Toxicity >100 ng/mL (>250 nmol/L) 52-Ggz-873133:07 ALK *ALK* 167 U/L (Abnormal) Range: 50-136 95-Xdj-246267:07 ALKISO tALKI 4 % (Normal) Range: 0-16 Comments: Effective August 07, 2013 the reference intervalwill be changing to:0 - 30 days Not Established1 month - 17 years 0 - 818 years - 100 years 0 - 18Performed at: [facility] [id number] Director: Joao Begum MD, Phone: [phone] tALKB 41 % (Normal) Range: 11-68 Comments: Effective August 07, 2013 the reference intervalwill be changing to:Male0 months - 6 months Not Established7 months - 5 years 48 - 976 years - 17 years 67 - 971 8 years - 100 years 12 - 89Mrbywo7 months - 6 months Not Established7 months [...] 8 years - 100 years 13 - 22Sowvlr8 months - 6 months Not Established7 months - 5 years 3 - 516 years - 12 years 2 - 2513 years - 100 years 18 - 85 tALKPHOS 142 [iU]/L (Abnormal) Range: 39-117 99-Siu-983554:07 GGTP 79 U/L (Abnormal) Range: 5-55 82-Pts-623107:33 FECAL OCCULT HGB ASSAY- tubes sent home (10142) FECAL OCCULT HGB ASSAY, QUAL, 1-3 SIMULTANEOU negative (Normal) 56-Nlx-796823:34 Microscopic Examination Comments: PATIENT WAS FASTINGPERFORMED BY: [facility] [id number] Bacteria None seen (Normal) Mucus Threads Present (Normal) Epithelial Cells (non renal) 0-10 {/hpf} (Normal) Range: 0 - 10 RBC 0-3 {/hpf} (Normal) Range: 0 - 3 WBC 0-5 {/hpf} (Normal) Range: 0 - 5 26-Npj-453815:10 Creatine Kinase Total (00239) Comments: PATIENT WAS FASTINGPERFORMED BY: [employer]70 [facility]EC[facility] [id number] Creatine Kinase,Total,Serum 61 U/L (Normal) Range: 24-173 07-Vaj-418338:10 Vitamin D Hydroxy (27509) Comments: PATIENT WAS FASTINGPERFORMED BY: [employer] [facility] [id number] Vitamin D, 25-Hydroxy 21.8 ng/mL (Abnormal) Range: 30.0-100.0 Comments: Vitamin D deficiency has been defined by the [place] of[place]icine and an Endocrine Society practice guideline as alevel of serum 25-OH vitamin D less than 20 ng/mL (1,2).The Endocrine Society went on to further define vitamin Dinsufficiency as a level between 21 and 29 ng/mL (2).1. IOM ([place] of Medicine). 2010. Dietary reference intakes for calcium and D. [place]: The National Academies Press.2. Azucena MF, Emelyn MCGOVERN, Cristian MARADIAGA, et al. Evaluation, treatment, and prevention of vitamin D deficiency: an Endocrine Society clinical practice guideline. JCEM. 2010; 96(7):1911-30. 27-Dss-849983:10 LIPID PANEL (95834) Comments: PATIENT WAS FASTINGPERFORMED BY: [employer] [facility] [id number] LDL/HDL Ratio 1.2 {ratio_units} (Normal) Range: 0.0-3.2 LDL Cholesterol Calc 110 mg/dL (Abnormal) Range: 0-99 VLDL Cholesterol Elijah 10 mg/dL (Normal) Range: 5-40 HDL Cholesterol 94 mg/dL (Normal) Comments: According to ATP-III Guidelines, HDL-C >59 mg/dL is considered anegative risk factor for CHD. Triglycerides 48 mg/dL (Normal) Range: 0-149 Cholesterol, Total 214 mg/dL (Abnormal) Range: 100-199 85-Bat-685637:10 URINALYSIS, W/ MICRO (68653) Comments: PATIENT WAS FASTINGPERFORMED BY: [employer]6370 [facility] [id number] Microscopic Examination See below: (Normal) Microscopic Examination MICRON (Normal) Comments: Microscopic follows if indicated. Nitrite, Urine Negative (Normal) Urobilinogen,Semi-Qn 0.2 mg/dL (Normal) Range: 0.0-1.9 Bilirubin Negative (Normal) Occult Blood Negative (Normal) Ketones Negative (Normal) Glucose Negative (Normal) Protein Negative (Normal) WBC Esterase Negative (Normal) Appearance Clear (Normal) Urine-Color Yellow (Normal) pH 7.0 (Normal) Range: 5.0-7.5 Specific [place] 1.016 (Normal) Range: 1.005-1.030 22-Lrf-571066:10 TSH (70056) Comments: PATIENT WAS FASTINGPERFORMED BY: [employer] Ckzqec5997 [facility] [id number] TSH 0.851 {uIU/mL} (Normal) Range: 0.450-4.500 14-Yjc-576973:10 CBC WITH MANUAL DIFF Comments: PATIENT WAS FASTINGPERFORMED BY: [facility] SystemJdqpnn6723 [facility] [id number] Information: 186920,X01265 (48095) Immature Grans (Abs) 0.0 {x10E3/uL} (Normal) Range: [...] 3.77-5.28 WBC 7.2 {x10E3/uL} (Normal) Range: 3.4-10.8 37-Omq-365995:10 METABOLIC PANEL, COMPREHENSIVE Comments: PATIENT WAS FASTINGPERFORMED BY: [facility] SystemZthlzl11[address] [facility] [id number] (62027) ALT (SGPT) 26 [iU]/L (Normal) Range: 0-32 [...] Glucose, Serum 81 mg/dL (Normal) Range: 65-99 21-Idt-481491:55 CHEST, PA AND LATERAL Radiology Report See [...] COPD with asthma Planned Observations Sputum Culture (77045)Indication: Cough On: 74-Blx-74184:39 Request THROAT CULTURE (20354)Indication: Sore throat On: 90-Btx-41414:29 Request Comments: neg OVA & PARASITE DIR SMEAR (58573)Indication: Diarrhea On: :27 Request OCCULT BLOOD FECES SCREEN (69036)Indication: Diarrhea On: :27 Request LEUKOCYTE COUNT, FECAL (76029)Indication: Diarrhea On: :27 Request C-DIFFICILE, STOOL (07355)Indication: Diarrhea On: :27 Request KATHERINE CULTURE-STOOL (52687)Indication: Diarrhea On: :27 Request Ferritin (96407)Indication: Microcytosis On: 5-Bae-926597:03 Request Iron (61236)Indication: Microcytosis On: 6-Aei-858657:03 Request CBC with manual diff (36964)Indication: Microcytosis On: 3-Mee-842033:03 Request Mitochondrial Antibody (M2) (45580)Indication: Abnormal finding of blood chemistry, unspecified On: :25 Request METABOLIC PANEL, COMPREHENSIVE (50578)Indication: Gallbladder polyp On: :24 Request CBC WITH MANUAL DIFF (18634)Indication: Microcytosis On: :24 Request FERRITIN (97449)Indication: Microcytosis On: :24 Request IRON (58023)Indication: Microcytosis On: 77-Chi-353014:24 Request Vitamin D Hydroxy (46486)Indication: VITAMIN D DEFICIENCY (Renamed from Avitaminosis D) On: 92-Ngy-422044:24 Request IRON BINDING CAPACITY (TIBC) (19293)Indication: Microcytosis On: :36 Request FERRITIN (22245)Indication: Microcytosis On: :36 Request IRON (39515)Indication: Microcytosis On: :36 Request CBC WITH MANUAL DIFF (61085)Indication: Microcytosis On: :36 Request Vitamin D Hydroxy (01546)Indication: VITAMIN D DEFICIENCY (Renamed from Avitaminosis D) On: :36 Request HEPATIC FUNCTION PANEL (67447)Indication: Abnormal finding of blood chemistry, unspecified On: 9-Qcm-436329:52 Request Comments: recheck in 3 months Mitochondrial Antibody (M2) (21835)Indication: Abnormal finding of blood chemistry, unspecified On: 76-Ine-999708:29 Request GGT (GAMMA GLUTAMYLTRANSFERASE) (06514)Indication: Abnormal finding of blood chemistry, unspecified On: 48-Jff-91553:55 Request Comments: pls add to order already drawn Alkaline Phosphatase-Isoenzym (33760)Indication: Abnormal finding of blood chemistry, unspecified On: 43-Eut-354923:36 Request Alkaline Phosphatase (73262)Indication: Abnormal finding of blood chemistry, unspecified On: 75-Wff-037205:36 Request TSH (35785)Indication: Elevated blood pressure (not hypertension) On: :36 Request URINALYSIS, W/ MICRO (22121)Indication: Elevated blood pressure (not hypertension) On: :36 Request CBC WITH MANUAL DIFF (02114)Indication: Pre-operative examination On: :36 Request METABOLIC PANEL, COMPREHENSIVE (86482)Indication: Pre-operative examination On: :36 Request KATHERINE CULTURE-STOOL (95998)Indication: Diarrhea On: :46 Request C-DIFFICILE, STOOL (60050)Indication: Diarrhea On: :46 Request LEUKOCYTE COUNT, FECAL (24929)Indication: Diarrhea On: :46 Request LIPID PANEL (84548)Indication: Elevated blood pressure (not hypertension) On: :21 Request URINALYSIS W/O MICRO (95292)Indication: Elevated blood pressure (not hypertension) On: :21 Request TSH (61760)Indication: Elevated blood pressure (not hypertension) On: : Request METABOLIC PANEL, COMPREHENSIVE (61444)Indication: Elevated blood pressure (not hypertension) On: : Request CBC WITH MANUAL DIFF (71368)Indication: Elevated blood pressure (not hypertension) On: : Request Planned Procedures CHEST XRAY, PA & LATERAL On: 15-Feb-2018 Intent (69714)By: Marzena Jansen CNP, CNP, Mary E US DOPPLER CAROTID BILATERAL On: 15-Feb-2018 Intent (52647)By: Marzena Jansen CNP, CNP, Mary E Aerosol Treatment (59583)By: Inderjit On: 15-Feb-2018 Intent Marzena HAWK CNP, Mary E Radiology - Chest- PA and LatBy: On: 16-Apr-2017 Intent Rosangela Mulligan DO Spirometry (23713)By: Isaak WANG, On: 16-Apr-2017 Intent Rosangela Comments: obstruction presnet Aerosol Treatment (01660)By: On: 07-Mar-2015 Intent Li Russ MD Solu -Medrol Injection, 125 mg On: 02-May-2014 Intent (J2930)By: Marzena Jansen CNP Comments: [id number]-X hip, IMDose-prefilled syringegiven by:GA Hart signed Marzena HAWK Aerosol Treatment (32021)By: Humble On: 02-May-2014 Intent Felisha GALLEGOS Ultrasound - GallbladderBy: Fast On: 16-Oct-2013 Intent Zoe WANG Comments: nov Ultrasound - LiverBy: Fast DO, On: 22-Aug-2013 Intent Zoe Lam Comments: recheck in 3 months Ultrasound - LiverBy: Fast DO, On: 08-Aug-2013 Intent Zoe Lam Eprescribed prescriptions On: 09-Jun-2013 Intent (G8553)By: Zoe Harper DO Eprescribed prescriptions On: 05-May-2012 Intent (G8553)By: Rosangela Mulligan DO Aerosol Treatment (04744)By: Inderjit On: 20-Jul-2011 Intent KENN HyacinthPo Jansen CNP Marzena Fontenot Pulse Oximetry (72364)By: Shadi BOSWELL, On: 20-Jul-2011 Intent Sivan Inhaler Demo (12476)By: Leroy WANG, On: 12-Aug-2010 Intent Zoe A EKG (02107)By: Jordyn Nicholson On: 12-Aug-2010 Intent Comments: ekg showed normal sinus rhythym, normal axis, no acute st/t wave changes Spirometry (20754)By: Leroy WANG, On: 12-Aug-2010 Intent Zoe A Comments: good effort and curve mild obst Pulse Oximetry (26467)By: Leroy WANG, On: 12-Aug-2010 Intent Zoe A Comments: 96 Radiology - Chest- PA and LatBy: On: 12-Aug-2010 Intent Zoe Harper DO Aerosol Treatment (41005)By: Inderjit On: 05-Jun-2009 Intent KENN HyacinthPo Jansen CNP Marzena Fontenot Pulse Oximetry (63714)By: West On: 27-Mar-2009 Intent MARISABEL Aerosol Treatment (60667)By: Leroy On: 23-Mar-2007 Intent Zoe WANG Spirometry (68158)By: Leroy WANG, On: 23-Mar-2007 Intent Zoe Lam Comments: good effort but significant obstruction alexis in small areas Solu- Medrol Injection, 125mg On: 29-Mar-2007 Intent (J2930)By: Zoe Harper DO Comments: Lot #: [id number] date: mount given: 125 mg/2 mlRoute: IMSite given: Left hipGiven by: Carole Sheridan LPN Pulse Oximetry (08155)By: Shadi BOSWELL, On: 23-Mar-2007 Intent Sivan Inhaler Demo (48498)By: Isaak WANG, On: 29-Dec-2006 Marbella Adames Pulse Oximetry (10931)By: Isaak On: 29-Dec-2006 Intent Rosangela WANG Aerosol Treatment (76926)By: On: 29-Dec-2006 Intent Rosangela Mulligan DO Solu- [...] SHE IS DOing counseling once a w [place] -- she is off all the meds [...] include specific circumstances ( [place] and they can't find his body yet.). [...]
== END ==
PROVIDERS: Family Provider Internal Medicine; PCP Internal Medicine; Referring Provider Nurse Practitioner; Visit Provider Nurse Practitioner
DX: J06.9 Acute upper respiratory infection, unspecified (principal)
CPT/HCPCS: 71046

== ENCOUNTER → 2018-02-18 07:37 | Outpatient (CLI) | payer BC, SELFPAY ==
[2014-10-08 10:38] VITALS: BMI 32.9
--- NOTE | 2018-02-18 07:40 | CDU_ITS ---
Reason For Study: BRUIT Rt. Velocities/BP Lt. Velocities/BP Prox CCA 131/19 cm/sec. Prox CCA 80/21 cm/sec. Mid CCA 74/18 cm/sec. Mid CCA 78/21 cm/sec. Dist CCA 84/18 cm/sec. Dist CCA 59/24 cm/sec. Prox ICA 59/24 cm/sec. Prox ICA 46/18 cm/sec. Mid ICA 72/26 cm/sec. Mid ICA 65/26 cm/sec. Dist ICA 58/23 cm/sec. Dist ICA 78/31 cm/sec. Rt. ICA/CCA = 1.0. Lt. ICA/CCA = 1.0. Prox ECA 95/20 cm/sec. Prox ECA 103/15 cm/sec. Rt. Vert. 50/19 cm/sec. Lt. Vert. 55/15 cm/sec. Right Extracranial There is intimal thickening but no significant atherosclerotic plaque noted in the right common carotid artery. There is intimal thickening but no significant atherosclerotic plaque noted in the right internal carotid artery. There is homogeneous, smooth atherosclerotic plaque noted in the right external carotid artery. Antegrade flow is noted in the right vertebral artery. Left Extracranial There is intimal thickening but no significant atherosclerotic plaque noted in the left common carotid artery. There is intimal thickening but no significant atherosclerotic plaque noted in the left internal carotid artery. There is heterogeneous, smooth atherosclerotic plaque noted in the left external carotid artery. Antegrade flow is noted in the left vertebral artery. Procedure Carotid Duplex [id number]. Exam performed in department. Interpretation Summary No significant atherosclerotic plaque or stenosis noted in the internal carotid arteries bilaterally. Flow within the vertebral arteries is antegrade bilaterally. Ordering Physician: Marzena Jansen Referring Physician: MARINO ZENG Performed By: Tracy Montero, RDCS, RVT
--- OUTSIDE RECORDS SUMMARY | 2018-04-15 01:18 | XMS RPT_ITS ---
[...] SOURCE 04/16/2017 Active Encounter for NA Active [facility] screening Main [place] mammogram for Repository malignant neoplasm of breast / Z12.31(ICD-10) PROCEDURES PROCEDURES No Procedure Records FoundRESULTS RESULTS CAROTID DUPLEX Observed: 02/20/2018 Status: F Source: [place] ULTRASOUND 6:21 PM [facility] REPOSITORY [facility] Cardiovascular Services [address] [place] [address] Carotid Duplex Ultrasound 02/18/18 0754 MR#: [id number] Acct: [id number] Name: CLARITA LAZO Rep #: [id number] : 1955 62 From: Murtaza Polanco MD Attending Dr: Marzena Jansen NP Status: REG CLI Ordering Dr: Marzena Jansen DEPUTY ATTORNEY GENERAL-C Date: 02/18/18 Location: CVS Sex: F C [...] the left vertebral artery. Procedure Carotid Duplex 26814. Exam performed in department. Interpretation Summary No significant atherosclerotic plaque or stenosis noted in the internal carotid arteries bilaterally. Flow within the vertebral arteries is antegrade bilaterally. Ordering Physician: Marzena Jansen Referring Physician: ZOE ZENG Performed By: Tracy Montero, RDCS, RVT 02/20/181819 Date Murtaza Polanco MD CC: Marzena Jansen DEPUTY ATTORNEY GENERAL; Zoe Zeng DO Date Dictated: 02/18/18 0754 Date Transcribed: 02/20/181819 Medical Director Of Hospice: Signed CHEST PA AND LATERAL Observed: 02/15/2018 Status: F Source: [place] 9:24 AM [facility] REPOSITORY [facility] Imaging Services [address] [place], [place] [address] [address] Chest PA and Lateral MR#: [id number] Acct: [id number] Name: CLARITA LAZO Rep #: [id number] : 1955 F 62 From: Darrian Caruso MD PCP: Zoe Zeng DO Status: REG CLI Study: Chest PA and Lateral Date of Exam: 02/15/18 Exam# [id number] Ordering Dr: Marzena Jansen DEPUTY ATTORNEY GENERAL-C STUDY: X-RAY CHEST REASON FOR EXAM: Female, [...] Darrian Caruso MD at 10:01 EST Tel [phone], Service support , CC: Marzena Jansen NP; Zoe Zeng DO Medical Director Of Hospice: Signed PROGRESS Observed: 08/08/2017 Status: COMPLETED Source: [place] 12:38 PM [facility] REPOSITORY HNO ID: [id number] Author: Selin Brower Service: (none) Author Type: Nurse Practitioner Type: Progress Notes Filed: 08/08/2017 1:05 PM Note Text: Subjective The history is provided by the patient. No transport driver was used. HPI Clarita Lazo is a 62 year old female who presents today for CC of poison angela rash. This started over the past 2-3 days. She is also having itching. Symptoms are worsened by nothing. She has tried hydrocortisone cream Risk factors working in [place] not significant. BP 104/84 Pulse 91 [...] children: 1 Occupational History Occupation Employer Comment [employer] Social History Main Topics Smoking status: Former [...] detail warranting prompt ER evaluation. Selin Brower APRN.FARM GENERAL MANAGER CNOV Observed: 08/08/2017 Status: COMPLETED Source: [place] 12:30 PM [facility] REPOSITORY Office Visit (WSTR) CLARITA LAZO ([id number]) 1955 F Date Time Provider Department 08/08/17 12:30 PM SELIN BROWER ([facility]) [facility] During your visit today, we [...] history is provided by the patient. No transport driver was used. HPI Clarita Lazo is a 62 year old female who presents today for CC of poison angela rash. This started over the past 2-3 days. She is also having itching. Symptoms are worsened by nothing. She has tried hydrocortisone cream Risk factors working in [place] [employer] not significant. BP 104/84 Pulse 91 [...] children: 1 Occupational History Occupation Employer Comment [employer] Social History Main Topics Smoking status: Former [...] detail warranting prompt ER evaluation. Selin Brower APRN.FARM GENERAL MANAGER Referring Provider: SELF [200] Allergies As of [...] 08/08/17 CNCO Observed: 04/16/2017 Status: COMPLETED Source: [place] 1:32 PM [facility] REPOSITORY HNO ID: [id number] Author: Mammography Coordinator Service: (none) Author Type: Physician Type: Letter Filed: 04/19/2017 11:33 PM Note Text: April 16, 2017 PID: [id number] Clarita Oliveros [address] [place] [address] Dear Ms. Lazo, We are pleased to [...] report will be kept on file at [facility] as part of your permanent medical record and are available for your continuing care. Thank you for allowing us to help in meeting your health care needs. Sincerely, Dr. Gorman Interpreting Radiologist [facility] (Normal over 40) CHEST PA AND LATERAL Observed: 04/16/2017 Status: F Source: [place] 10:28 AM [facility] REPOSITORY [facility] Imaging Services [address] [place] [address] Chest PA and Lateral MR#: [id number] Acct: [id number] Name: CLARITA LAZO Rep #: [id number] : 1955 F 61 From: Darrian Caruso MD PCP: Zoe Zeng DO Status: REG CLI Study: Chest PA and Lateral Date of Exam: 04/16/17 Exam# [id number] Ordering Dr: Rosangela Mulligan DO STUDY: X-RAY [...] Darrian Caruso MD at 14:33 EST Tel [phone], Service support , CC: Zoe Zeng DO; Rosangela Mulligan DO Medical Director Of Hospice: Signed PROGRESS Observed: 04/16/2017 Status: COMPLETED Source: [place] 9:07 AM [facility] REPOSITORY HNO ID: [id number] Author: Ramu Jacome Service: (none) Author Type: [...] external genitalia normal, normal Bartholin's glands, urethra, St. Thomas's glands, no vulvar lesions, no cervical lesions, [...] MD CNOV Observed: 04/16/2017 Status: COMPLETED Source: [place] 9:00 AM [facility] REPOSITORY Office Visit (WOOB) CLARITA LAZO ([id number]) 1955 F Date Time Provider Department 04/16/17 [...] external genitalia normal, normal Bartholin's glands, urethra, St. Thomas's glands, no vulvar lesions, no cervical lesions, [...] mammogram for breast cancer [Z12.31] Order(s):MARILYN SCREENING [[id number]] Order #: [id number] FUTURE Prescriptions as of 04/16/2017 Sig: PROVITE [...] Status:Closed by RAMU JACOME MD on 04/16/17 [facility] SCREENING Observed: 04/16/2017 Status: F Source: [place] 8:55 AM [facility] REPOSITORY * * *Final Report* * * DATE OF EXAM: Apr 16 2017 8:55AM WOW 0581 - [facility] SCREENING / PROCEDURE REASON: Encounter for screening mammogram for malignant neoplasm of breast * * * * Physician Interpretation * * * * RESULT: #[id number] - [facility] SCREENING BILATERAL DIGITAL SCREENING MAMMOGRAM WITH CAD: [...] made to exams dated: 12/24/2015 mammogram - [facility], 09/27/2014 mammogram - [facility], 09/07/2014 mammogram, and 09/01/2013 mammogram - [facility]. There are scattered fibroglandular elements in both breasts. No significant masses, calcifications, or other findings are seen in either breast. There has been no significant interval change. IMPRESSION: NEGATIVE There is no mammographic evidence of malignancy.A 1 year screening mammogram is recommended. Mirlande Gorman M.D. /tracey:04/16/2017 13:32:12 Cloth Finishing Range Operator: Indigo ARIZA(Esperanza)(Mayda), [facility] letter sent: Normal over 40 Mammogram BI-RADS: 1 Negative Medical Director Of Hospice: Tracey Transcribe Date/Time: Apr 16 2017 8:56A Dictated by: MIRLANDE GORMAN MD This examination was interpreted and the report reviewed and electronically signed by: MIRLANDE GORMAN MD on Apr 16 2017 1:32PM EST [id number] ALLERGIES ALLERGIES DATE TYPE / CODE NAME / CODE REACTION SEVERITY SOURCE 09/27/2014 Drug No Known Unknown [place] Allergy/[id number](S Allergies/F0 [facility] NOM[facility]) [id number]([facility]) Repository 08/19/2005 Miscellaneous OTHER [facility] Allergy/239647528([facility] NOMED CT) Repository 08/19/2005 DRUG GRASS POLLEN [facility] INGREDI/[id number]([facility] NOMED CT) Repository ENCOUNTERS ENCOUNTERS ADMIT/DISCHARGE ACCOUNT ADMITTING ENCOUNTER LOCATION SOURCE NUMBER CLASS 02/18/2018 [id number] [facility]ulatory [facility] ing:[facility] Repository 02/15/2018 [id number] [facility] ing:[facility] Repository 08/08/2017/08/11/19 [id number] Ambulatory [address] Repository 04/16/2017 [id number] Ambulatory [facility] ing:HPRAD Repository 04/16/2017/04/19/19 [id number] Ambulatory [address] Repository 04/16/2017/04/16/[id number] Repository PAYERS PAYERS ENCOUNTER GUARANTOR PAYER SUBSCRIBER SOURCE 02/18/2018 CLARITA Benson Primary CLARITA Saab [id number] Insurance:ANTHEMPolic CROWNERDOB: Community [place] y [place]: [id number] [id number] Repository [address]Krg: (330) rambo Date:3209-87-11QY [phone] () [address], [place] [address]LL: 02/18/2018 Secondary NOT GIVENUNK [facility] Insurance:SELF PAY [facility] Number: Effective Repository Date:2018-02-15 02/15/2018 Clarita Benson Primary Clarita Saab [id number] Insurance:ANTHEMPolic CrownerDOB: [facility] y Number: [id number], [place] [id number] Repository [address]Jyr: [phone]) rambo Date:3447-42-84LC [phone] () [address] [place] [address]NK: 02/15/2018 Secondary NOT GIVENUNK [place] Insurance:SELF PAY [facility] Number: Effective Repository Date:2018-02-15 04/16/2017 Clarita Benson Primary Clarita Saab [id number] Insurance:ANTHEMPolic CrownerDOB: [facility] y Number: [id number] [id number] Repository [address]Hmy: [phone]) rambo Date:4221-57-31XL [phone] () [address], [place] [address]BV: 04/16/2017 Secondary NOT GIVENUNK [facility] Insurance:SELF PAY [facility]: Effective Repository Date:2017-04-16
== END ==
PROVIDERS: Family Provider Internal Medicine; PCP Internal Medicine; Referring Provider Nurse Practitioner; Visit Provider Nurse Practitioner
DX: R09.89 Other specified symptoms and signs involving the circulatory and respiratory systems (principal)
CPT/HCPCS: 93880

== ENCOUNTER 2018-08-29 05:23 | Inpatient (IN) | payer BC, SELFPAY ==
[2018-08-17 15:30] VITALS: BP 128/83; PULSE 99; RESP 18; TEMP 36.9; O2SAT 94; BMI 38.0
--- NOTE | 2018-08-17 15:38 | SDCEKG_ITS ---
Test Reason : Blood Pressure : / mmHG Vent. Rate : 090 BPM Atrial Rate : 090 BPM P-R Int : 132 ms QRS Dur : 088 ms QT Int : 396 ms P-R-T Axes : 052 -20 018 degrees QTc Int : 484 ms Normal sinus rhythm Leftward axis Confirmed by YOLANDA ANTONIO, SEBASTIAN ([id number]), scientific editor ERICH MCCARTNEY ([id number]) on 08/22/2018 1:34:31 PM Referred By: Gaston Foster Confirmed By:SEBASTIAN GUERRERO MD
[2018-08-17 16:06] LABS: Absolute Lymphocyte Count 2.67 X10^3/ul (0.83-4.51); Absolute Neutrophil Count 5.6 X10^3/uL (2.0-7.7); Basophil# 0.03 X10^3/uL; Basophil% 0.3 % (0-1); Eosinophil# 0.21 X10^3/uL; Eosinophils% 2.3 % (0-5); Lymphocyte # 2.67 X10^3/ul (4.0); Lymphocyte % 29.3 % (19-41); Mean Corp Hgb Conc 33.3 g/gl (32-36); Mean Corpuscular Hgb 28.7 pg (27.0-32.0); Mean Platelet Vol. 10.9 fl (6.2-12.0); Monocyte# 0.61 X10^3/uL; Monocyte% 6.7 % (0-10); Neutrophil # 5.56 X10^3/uL (2.7-7.7); Neutrophil % 61.2 % (47-70); Platelet Count 270 K/mm3 (150-450); RBC Distribution Width CV 14.7 % (11.6-14.6); RBC Distribution Width SD 45.9 fl (35.1-43.9); Red Blood Count 5.23 M/mm3 (4.2-5.4); White Blood Count 9.1 K/mm3 (4.4-11.0)
[2018-08-17 16:08] LABS: POSITIVE COUNT NO; POSITIVE DIFFERENTIAL NO; POSITIVE MORPHOLOGY NO
--- NOTE | 2018-08-17 16:15 | RAD_ITS ---
STUDY: X-RAY CHEST REASON FOR EXAM: Female, 63 years old. Preoperative evaluation before knee surgery. TECHNIQUE: PA and lateral views of the chest. COMPARISON: February 15, 2018 FINDINGS: There is no new focal consolidation. The lungs remain mildly hyperinflated. Normal size heart. Normal mediastinum and rosy. Normal visualized pulmonary arteries. There is atherosclerotic calcification of the aortic arch. Normal visualized thoracic spine. Normal visualized ribs, clavicles, and shoulders. There is no demonstrated abnormality of the visualized soft tissue structures of the upper abdomen. RAD/Chest PA and Lateral IMPRESSION: No acute cardiopulmonary process. Electronically Signed: Maki Flores MD at 16:33 EDT Tel , Service support ,
[2018-08-17 16:26] LABS: Anion Gap 9 (5-15); BUN 21 mg/dL (7-18); BUN/Creat Ratio 21.6 RATIO (10-20); Calcium,Total 9.1 mg/dL (8.5-10.1); Chloride 104 mmol/L (98-107); Creatinine, Serum 0.97 mg/dL (0.55-1.02); EST Glomerular Filtration Rate 61 mL/min (>60); Est Glom Filt Rate - Afr Amer 74 mL/min (>60); Estimated Creatinine Clearance 47.83 ml/min; Glucose 102 mg/dL (74-106); Potassium 4.1 mmol/L (3.5-5.1); Sodium Level 141 mmol/L (136-145)
[2018-08-29] VITALS (15 sets, daily range): BP systolic 82–147; BP diastolic 48–110; PULSE 62–90; RESP 16–18; TEMP 36.2–36.7; O2SAT 94–100; BMI 38.0
--- NOTE | 2018-08-29 07:15 | KNEE_PTH ---
PATIENT: JULIAN BOYER LOC: MS3 U#:[id number] AGE/SX: 63/F ROOM: MS319 RE08/29/[address]: Dr. Gaston Foster DO : 1955 BED: 1 DIS: 08/30/2018 SPEC #: [id number] RECD: 08/29/18 09:15 STATUS: JUAN REQ #: [id number] CIERRA: 08/29/18 07:[address]: Gaston Foster DEPT: SURGICAL PATHOLOGY RECD BY: Ananth Stoddard ENTERED: 08/29/18 12:22 SP TYPE: TOTAL KNEE OTHR DR: Dr. Rashmi Lerma MD Tissues: Knee, NOS Procedures: Decalcification bone/plaque Surgery Specimen Level IV HEADER OPERATION: Total knee replacement PRE-OP DIAGNOSIS: Endstage osteoarthritis right knee TISSUE SUBMITTED: Right knee bone and tissue MICROSCOPIC DIAGNOSIS Right knee bone and tissue, total knee replacement/resection: Pieces of bone with degenerative osteoarthritic changes. Fibroadipose tissue, fibroconnective tissue and reactive synovial tissue. SJ:aleja 09/01/18 MICROSCOPIC DESCRIPTION Slides are reviewed. GROSS DESCRIPTION Received is one container designated right knee bone and tissue. The specimen consists of multiple fragments of newsome-yellow bone measuring in aggregate 15 x 11.5 x 1.8 cm. Also in the specimen container are multiple fragments of yellow-white soft tissue measuring in aggregate 10.5 x 9 x 1.5 cm. A number of bony fragments contain articular surfaces consistent with tibial plateau and femoral condyle and displaying prominent osteophyte formation, eburnation, and bone erosion. Concession Supervisor sections are submitted in two cassettes as follows: 1 - soft tissue, 2 - bone after decalcification. / AM:aleja 08/29/18 TC:5 [facility]: [id number], [id number]
[2018-08-29] MEDS: Cefazolin 2 GM in 0.9% Normal Saline 100 ML IV (07:24)
--- NOTE | 2018-08-29 08:24 | PCM.OPRPT ---
Report of Operation Date of Procedure: 08/29/18 Pre-Operative Diagnosis: OA right knee Post-Operative Diagnosis: same Surgery/Procedure Performed:: Right TKR Description of Surgical Findings:: Primary Surgeon/Physician: Gaston Foster computer systems auditor: Jose Juan PA-C computer systems auditor: Pre-Operative Diagnosis: OA right knee Post-Operative Diagnosis: same Surgery/Procedure Performed: Right TKR Estimated Blood Loss: minimal Specimen's Removed: bone Type of Anesthesia: spinal ASA Class: 3 Implants: [Karolyn Triathlon size 4 PS femur, size 4 tibia, 11 mm polyethylene spacer, 32 mm patella (all components cemented) ] Indications: Patient has severe end-stage osteoarthritis diagnosed via x-rays in the knee. They have failed all forms of conservative measures including activity modification, injections, anti-inflammatories, use of assistive device. The patient has pain that affects on a daily basis and prevents him from doing things that they enjoyed. They have elected to undergo the above procedure. The risks of the procedure were discussed at length and their questions were answered. Procedure Description: The patient was greeted in the preoperative area. The [right ] knee was then marked with a surgical marker. Patient was then taken to or [address]. They were administered a dose of antibiotics as well as tranexamic acid. Once adequate anesthesia was obtained and airway was secured to placed in supine position on the operating room table. A well-padded tourniquet was placed on the affected extremity. Leg was then prepped and draped in the usual sterile fashion from the knee down. Ioban was used on the skin. Surgical timeout was then performed and confirmed with all present. Six-inch Esmarch was used to examine the limb and tourniquet was then inflated to 250 mmHg. A longitudinal incision was then planned and carried out in the anterior aspect of the knee. The dissection was then carried the length of the incision the extensor mechanism was identified. Standard medial parapatellar arthrotomy was then performed revealing severe eburnation of bone and periarticular osteophytes. There is complete loss of cartilage especially in the medial compartment with varus alignment. Anterior fat pad was removed for visualization purposes and the anterior medial aspect of the tibia was skeletonized for exposure to the knee. The knee was then flexed the patella was inverted. Opening reamer was then used in the femur approximately 1 cm anterior to the attachment of the PCL. The intramedullary valgus wand was then placed in the femur set at 5? of valgus. The distal femoral cutting jig was then applied to the femur with anticipated resection of approximately 8 mm. This was then made with a oscillating saw. The sizing guide was then placed referencing off the posterior condyles and also reference off the epicondylar axis. This was measured and the appropriate size 4-in-1 cutting jig was then applied to the distal femur. Anterior posterior cuts were made followed by the anterior and posterior chamfer cuts. These bony pieces and fragments were removed and placed on the back table. Posterior retractor was then utilized and the tibia was subluxed anteriorly. Intramedullary tibial alignment jig was then applied to the tibia referencing off the medial one third of the tibial tubercle the anterior tibial spine the middle aspect of the tibiotalar joint. Also reference off patient's [place] slope. The tibial cutting jig was then pinned with anticipated resection of 2 mm off of the deficient medial tibial condyle. This cut was made with the oscillating saw. Once this was complete a laminar appliance assembler was utilized in both medial lateral meniscus were removed and a posterior capsular osteophytes were also removed. Posterior capsule release was performed in the posterior capsule as well as the geniculate arteries are treated with the aqua Alexandra. The tibia was incised and the appropriate sized tibial tray was then pinned. The femoral box cutting jig was then applied to the femur and the box was prepared removing a portion of the intercondylar notch. The femoral trial was then placed and the knee was trialed. Full flexion-extension were easily achieved. The knee seemed to balance quite nicely. Any remaining osteophytes were removed at this time. Once this was complete the patella was everted and the Fely patella reaming device was then utilized the patella was then placed in the appropriate jig and reamer was then used to remove approximately 9 mm of the undersurface of the patella. A soft tissue remaining was in the way was removed and patella trial was then placed listed maintain excellent tracking using the no thumbs technique. The tibial tray at this point was punched to accommodate the fins of the final implant. At this point cement was mixed on the back table. The trial components were removed and the knee was copiously irrigated. Did use a cocktail of injection for postoperative pain control. The final components were then cemented in the standard fashion and excess cement was removed with cement removal tools and patellar clamp is placed in the patella. As the cement had cured in full extension tourniquet was deflated and hemostasis was perfect with Bovie cautery as well as the aqua Manus. Needle is once again trialed with different size polyethylenes to ensure the full range of motion was achieved as well as excellent balancing ligamentously was achieved. At this point the knee was copiously irrigated. Final implant was then inserted locking mechanism was engaged and confirmed to be locked. The arthrotomy was then closed with #1 Vicryl aggravate type fashion interrupted. Subcutaneous tissue was closed with 0 Vicryl and surgical gautam were placed in the skin. A occlusive silver impregnated dressing was then applied followed by well-padded sterile dressing secured with an Luiz wrap. The patient was taken to the PACU in stable condition. No complications known at this time. Postoperatively we will maintain standard total knee postoperative protocol. The use of the physician regulatory assistant was integral during this procedure. They assisted with positioning placement of the tourniquet retracting closure and placement of the dressing. The procedure would have been much more difficult without their expertise and assistance computer systems auditor: Phu Juan Type of Anesthesia:: Spinal Anesthesiologist: Zheng Garcia Specimen's removed: bone - Admit VTE Documentation VTE Present on Admission: No VTE Mechan Device Prophylaxis: SCD's, Thigh High USHA Hose VTE Pharm Prophylaxis ordered?: Yes
--- NOTE | 2018-08-29 08:29 | OP.PCM_ITS ---
Report of Operation Date of Procedure: 08/29/18 Pre-Operative Diagnosis: OA right knee Post-Operative Diagnosis: same Surgery/Procedure Performed:: Right TKR Description of Surgical Findings:: Primary Surgeon/Physician: Gaston Foster placement specialist: Jose Juan PA-C placement specialist: Pre-Operative Diagnosis: OA right knee Post-Operative Diagnosis: same Surgery/Procedure Performed: Right TKR Estimated Blood Loss: minimal Specimen's Removed: bone Type of Anesthesia: spinal ASA Class: 3 Implants: [Karolyn Triathlon size 4 PS femur, size 4 tibia, 11 mm polyethylene spacer, 32 mm patella (all components cemented) ] Indications: Patient has severe end-stage osteoarthritis diagnosed via x-rays in the knee. They have failed all forms of conservative measures including activity modification, injections, anti-inflammatories, use of assistive device. The patient has pain that affects on a daily basis and prevents him from doing things that they enjoyed. They have elected to undergo the above procedure. The risks of the procedure were discussed at length and their questions were answered. Procedure Description: The patient was greeted in the preoperative area. The [right ] knee was then marked with a surgical marker. Patient was then taken to or [address]. They were administered a dose of antibiotics as well as tranexamic acid. Once adequate anesthesia was obtained and airway was secured to placed in supine position on the operating room table. A well-padded tourniquet was placed on the affected extremity. Leg was then prepped and draped in the usual sterile fashion from the knee down. Ioban was used on the skin. Surgical timeout was then performed and confirmed with all present. Six-inch Esmarch was used to examine the limb and tourniquet was then inflated to 250 mmHg. A longitudinal incision was then planned and carried out in the anterior aspect of the knee. The dissection was then carried the length of the incision the extensor mechanism was identified. Standard medial parapatellar arthrotomy was then performed revealing severe eburnation of bone and periarticular osteophy koby. There is complete loss of cartilage especially in the medial compartment with varus alignment. Anterior fat pad was removed for visualization purposes and the anterior medial aspect of the tibia was skeletonized for exposure to the knee. The knee was then flexed the patella was inverted. Opening reamer was then used in the femur approximately 1 cm anterior to the attachment of the PCL. The intramedullary valgus wand was then placed in the femur set at 5? of valgus. The distal femoral cutting jig was then applied to the femur with anticipated resection of approximately 8 mm. This was then made with a oscillating saw. The sizing guide was then placed referencing off the posterior condyles and also reference off the epicondylar axis. This was measured and the appropriate size 4-in-1 cutting jig was then applied to the distal femur. Anterior posterior cuts were made followed by the anterior and posterior chamfer cuts. These bony pieces and fragments were removed and placed on the back table. Posterior retractor was then utilized and the tibia was subluxed anteriorly. Intramedullary tibial alignment jig was then applied to the tibia referencing off the medial one third of the tibial tubercle the anterior tibial spine the middle aspect of the tibiotalar joint. Also reference off patient's [place]. The tibial cutting jig was then pinned with anticipated resection of 2 mm off of the deficient medial tibial condyle. This cut was made with the oscillating saw. Once this was complete a laminar bed bug exterminator was utilized in both medial lateral meniscus were removed and a posterior capsular osteophytes were also removed. Posterior capsule release was performed in the posterior capsule as well as the geniculate arteries are treated with the aqua Alexandra. The tibia was incised and the appropriate sized tibial tray was then pinned. The femoral box cutting jig was then applied to the femur and the box was prepared removing a portion of the intercondylar notch. The femoral trial was then placed and the knee was trialed. Full flexion-extension were easily achieved. The knee seemed to balance quite nicely. Any remaining osteophytes were removed at this time. Once this was complete the patella was everted and the Fely patella reaming device was then utilized the patella was then placed in the appropriate jig and reamer was then used to remove approximately 9 mm of the undersurface of the patella. A soft tissue remaining was in the way was removed and patella trial was then placed listed maintain excellent tracking using the no thumbs technique. The tibial tray at this point was punched to accommodate the fins of the final implant. At this point cement was mixed on the back table. The trial components were removed and the knee was copiously irrigated. Did use a cocktail of injection for postoperative pain control. The final components were then cemented in the standard fashion and excess cement was removed with cement removal tools and patellar clamp is placed in the patella. As the cement had cured in full extension tourniquet was deflated and hemostasis was perfect with Bovie cautery as well as the aqua Manus. Needle is once again trialed with different size polyethylenes to ensure the full range of motion was achieved as well as excellent balancing ligamentously was achieved. At this point the knee was copiously irrigated. Final implant was then inserted locking mechanism was engaged and confirmed to be locked. The arthrotomy was then closed with #1 Vicryl aggravate type fashion interrupted. Subcutaneous tissue was closed with 0 Vicryl and surgical gautam were placed in the skin. A occlusive silver impregnated dressing was then applied followed by well-padded sterile dressing secured with an Luiz wrap. The patient was taken to the PACU in stable condition. No complications known at this time. Postoperatively we will maintain standard total knee postoperative protocol. The use of the physician assistant county attorney was integral during this procedure. They assisted with positioning placement of the tourniquet retracting closure and placement of the dressing. The procedure would have been much more difficult without their expertise and assistance placement specialist: Phu Juan Type of Anesthesia:: Spinal Anesthesiologist: Zheng Garcia Specimen's removed: bone - Admit VTE Documentation VTE Present on Admission: No VTE Mechan Device Prophylaxis: SCD's, Thigh High USHA Hose VTE Pharm Prophylaxis ordered?: Yes
[2018-08-29] MEDS: oxyCODONE 5 MG Tablet PO ×4 (10:15→22:54)
[2018-08-29] MEDS: Lactated Ringers 1,000 ML 125 ML IV ×2 (13:27→22:03)
[2018-08-29] MEDS: Acetaminophen 500 MG Tablet 1000 MG PO ×2 (13:34→21:05)
[2018-08-29] MEDS: Ascorbic Acid 500 MG Tablet 1000 MG PO ×2 (13:34→21:04)
[2018-08-29] MEDS: Multivitamins,Ther W-Minerals Tablet 1 TABLET PO (13:35)
[2018-08-29] MEDS: Cefazolin 1 GM/50 ML BAG IV ×2 (15:14→22:57)
[2018-08-29] MEDS: Aspirin 325 MG Tablet PO (17:33)
[2018-08-29] MEDS: 0.9% NaCl Peripheral Flush Adult/Peds IV (19:26)
[2018-08-29] MEDS: Ondansetron 4 MG/2 ML Vial IV (19:26)
[2018-08-29] MEDS: Senna/Docusate Sodium 1 Tablet 2 TABLET PO (21:05)
[2018-08-30 02:47] VITALS: BP 117/77; PULSE 69; RESP 18; TEMP 36.5; O2SAT 93
[2018-08-30] MEDS: Acetaminophen 500 MG Tablet 1000 MG PO (05:34)
[2018-08-30 06:09] LABS: Hematocrit 40.5 % (37-47); Hemoglobin 13.1 g/dl (12.0-15.0); Mean Corp Hgb Conc 32.3 g/gl (32-36); Mean Corpuscular Hgb 28.8 pg (27.0-32.0); Mean Platelet Vol. 10.3 fl (6.2-12.0); Platelet Count 231 K/mm3 (150-450); RBC Distribution Width CV 14.8 % (11.6-14.6); RBC Distribution Width SD 48.1 fl (35.1-43.9); Red Blood Count 4.55 M/mm3 (4.2-5.4); White Blood Count 12.2 K/mm3 (4.4-11.0)
[2018-08-30 06:13] LABS: Scan Indicated on CBC? Y/N NO
[2018-08-30 06:27] LABS: Anion Gap 9 (5-15); BUN 11 mg/dL (7-18); BUN/Creat Ratio 12.3 RATIO (10-20); Calcium,Total 8.1 mg/dL (8.5-10.1); Chloride 105 mmol/L (98-107); EST Glomerular Filtration Rate 67 mL/min (>60); Est Glom Filt Rate - Afr Amer 81 mL/min (>60); Estimated Creatinine Clearance 53.81 ml/min; Glucose 85 mg/dL (74-106); Potassium 3.3 mmol/L (3.5-5.1); Sodium Level 142 mmol/L (136-145)
[2018-08-30] MEDS: oxyCODONE 5 MG Tablet PO ×2 (06:39→10:57)
--- NOTE | 2018-08-30 07:54 | PN.ORTHO_ITS ---
Subjective: Patient sitting at bedside eating breakfast. Patient states pain is well managed. Patient denies chest pain, shortness breath, calf pain, nausea v omiting. Patient is ready for discharge home, no other complaints. Objective: Dressing is clean dry intact. Negative signs and symptoms of DVT. Vital signs labs within normal limits. Patient is afebrile neurovascular is otherwise intact. Patient speaking in full sentences, with no respiratory distress. - Physical Exam General: Alert, Oriented x3, Cooperative HEENT: PERRLA Oral: Moist Mucosa Neurological: Cranial nerves II-XII grossly intact Psych/Mental Status: Normal Affect, Alert and oriented to time, place, person, mood and affect Vital Signs Temp Pulse Resp BP Pulse Ox 97.7 F L 69 18 117/77 93 08/30/18 02:47 08/30/18 02:47 08/30/18 02:47 08/30/18 02:47 08/30/18 02:47 Oxygen Delivery Method Room Air Weight: 100.698 kg Body Mass Index (BMI) 38.0 Intake and Output for Last 24 Hours 08/28/18 08/29/18 08/30/18 23:59 23:59 23:59 Intake Total 2857 / 2857 1550 / 1550 Output Total 250 / 250 1400 / 1400 Balance 2607 / 2607 150 / 150 Laboratory Tests Past 24 Hrs 08/30/18 08/30/18 05:58 05:58 WBC 12.2 H RBC 4.55 Hgb 13.1 Hct 40.5 MCV 89.0 MCH 28.8 MCHC 32.3 RDW 14.8 H RDW Differential 48.1 H Plt Count 231 MPV 10.3 Sodium 142 Potassium 3.3 L Chloride 105 Carbon Dioxide 28.0 Anion Gap 9 BUN 11 Creatinine 0.90 Estim Creat Clear Calc 53.81 Est GFR (MDRD) Af Amer 81 Est GFR (MDRD) Non-Af 67 BUN/Creatinine Ratio 12.3 Glucose 85 Calcium 8.1 L Medical Necessity - Tobacco Use Smoking Status: Former smoker Tobacco Use: Non-smoker Assessment/Plan Status post right total knee arthroplasty Plan 1. Continue all pain medications as prescribed 2. Continue physical therapy, weight-bear as tolerated with walker. 3. Aspirin 325 mg 1 p.o. every 12 hours x30 days for postop DVT prophylaxis 4. Encourage incentive spirometry 5. Continue physical therapy outpatient at [facility] 6. Follow-up as scheduled, see pink sheet 7. Discharge home today after p.m. therapy
--- NOTE | 2018-08-30 07:57 | DCINST_ITS ---
Discharge Diet: No Restrictions Discharge Activity: May Not Drive, May Shower, Use Walker May shower in (days): 3 Ice area for (Minutes): 20 - each hour while awake. Weight Bearing Status: Weight bearing as tolerated Elevate: Operative Extremity Additional Activity Instructions:: Wear elastic stockings for 2 weeks after your surgery. Call your doctor if your incision/area has: Continuous Slow Oozing, Sudden Increased Bleeding, Increased Pain/ Swelling, Increased Redness, Foul Smelling Discharge Call your doctor if you observe: Fever of 101 or Higher, Coldness, Increased Pain - in extremity, Numbness or Tingling, Change in Color, Calf discomfort, Uncontrolled pain Change Dressing in (Days):: 0 - and daily as needed. Remove Dressing in (days):: 8 Cleanse incision/area with: Soap & Water Allergies/Adverse Reactions: Allergies No Known Allergies Allergy (Verified 08/17/18 15:17) Medications to take at Discharge Cholecalciferol (VIT D3) [Vitamin D3] 1,200 unit PO BID 09/27/14 Pantoprazole Sodium [Protonix] 40 mg PO DAILY 09/27/14 Albuterol IH (ProAir) [Proair Hfa] 1 - 2 puff INHALATION Q6H PRN PRN 08/17/18 Ascorbic Acid [Vitamin C] 1,000 mg PO BID 08/17/18 Multivit-Min/Iron/Folic/Lutein [Centrum Silver Women Tablet] 1 each PO DAILY 08/17/18 Acetaminophen [Tylenol] 1,000 mg PO Q8 #90 tab 08/30/18 Aspirin 325 mg PO BIDCM #60 tab 08/30/18 Oxycodone [Oxyir] 5 - 10 mg PO Q4H PRN PRN 7 Days #90 tab 08/30/18 The following prescriptions were given: Oxycodone [Oxyir] 5 - 10 mg PO Q4H PRN PRN 7 Days #90 tab PRN Reason: Mod-Severe Pain (4-12/29) Acetaminophen [Tylenol] 1,000 mg PO Q8 #90 tab Aspirin 325 mg PO BIDCM #60 tab Primary Care Physician: Rashmi Lerma MD [Primary Care Provider] - Test Results: Test results from this visit will be discussed in further detail at your follow- up appointment, if applicable. Please Follow Up With: Phu Juan PA-C When: see pink sheet
[2018-08-30 07:59] VITALS: BP 126/75; PULSE 74; RESP 18; TEMP 36.9; O2SAT 97
[2018-08-30] MEDS: Aspirin 325 MG Tablet PO (08:13)
[2018-08-30] MEDS: Multivitamins,Ther W-Minerals Tablet 1 TABLET PO (08:13)
[2018-08-30] MEDS: Pantoprazole Sodium 40 MG Tablet PO (09:11)
[2018-08-30] MEDS: Senna/Docusate Sodium 1 Tablet 2 TABLET PO (09:11)
[2018-08-30] MEDS: Ascorbic Acid 500 MG Tablet 1000 MG PO (09:12)
--- NOTE | 2018-08-30 11:35 | CASEMGMT ---
ANDREIA LOPEZ Face to Face with patient for initial transition planning/care coordination assessment. ANDREIA LOPEZ introduced self and role at [facility]. Patient lying in bed, alert and oriented. Patient willing to participate in assessment and is able to answer all questions appropriately. Care providers, pharmacy, and demographics verified. Patient wishes to discharge home and would like outpatient therapy setup with [facility]. ANDREIA LOPEZ called [facility] and setup an appt for outpatient therapy at [facility] on Wednesday09/02/18 at 1400. Patient states she has no further needs or concerns at this time. CM to follow for discharge planning needs that may arise. PCP: Florentin Specialists: None Preferred Pharmacy: [facility] Insurance: Mona Prescription Benefit: yes Living Will/HPOA: None LNOK: Son Living Arrangements: Patient lives alone in a 2 story house with bed and bath on first floor. Transportation: Son DME/HHC: Patient states she has Raised toilet seat, cane, and walker at home. Disposition Plan: Patient to discharge home with outpatient therapy, family support, and follow-up plans in place. Maye HILARIO, RN, CM
[2018-08-30 14:30] VITALS: BP 146/84; PULSE 80; RESP 18; TEMP 37.1; O2SAT 95
== END 2018-08-30 14:55 | disposition home or self-care (01) | DRG 470 ==
LOC: ACINP 05:25 → MS3 09:23
PROVIDERS: Admitting Provider Orthopaedic Surgery; Family Provider Internal Medicine; PCP Internal Medicine; Referring Provider Orthopaedic Surgery; Visit Provider Orthopaedic Surgery
PROC: 0SRC0J9 Replacement of Right Knee Joint with Synthetic Substitute, Cemented, Open Approach (ICD-10-PCS; CPT 27447; principal; 2018-08-29 06:50)
DX: M17.11 Unilateral primary osteoarthritis, right knee (principal)
CPT/HCPCS: 36415; 71046; 80048; 85025; 85027; 87077; 87081; 88305; 88311; 93005; 97110; 97161; 97166; 97530; C1776; J7120; A4216; J2405

== ENCOUNTER → 2018-09-07 | Outpatient (CLI) | payer BC, SELFPAY ==
[2018-08-29 11:57] VITALS: BMI 38.0
--- NOTE | 2018-09-07 14:05 | VDLE_ITS ---
Reason For Study: Swelling RIGHT GSV is normal. CFV is compressible, spontaneous, phasic, competent and demonstrates normal augmentation. FV is compressible, spontaneous, phasic, competent and demonstrates normal augmentation. POP V is compressible, spontaneous, phasic, competent and demonstrates normal augmentation. T/P Trunk is compressible. PTV is compressible. RT PerV is compressible. Procedure Exam performed in department. A preliminary report was called and/or faxed to Kristin. Interpretation Summary Deep veins of the right lower extremity are patent and compressible segmentally. There is no evidence of right lower extremity deep vein thrombosis. Valvular competence appears intact within the proximal deep venous system on the right . The right greater saphenous vein appears patent and compressible segmentally. Ordering Physician: Gaston Foster Referring Physician: Rashmi Lerma Performed By: Maye Soto RVT
== END | disposition home or self-care (01) ==
PROVIDERS: Family Provider Internal Medicine; PCP Internal Medicine; Referring Provider Orthopaedic Surgery; Visit Provider Orthopaedic Surgery
DX: M79.604 Pain in right leg (principal)
CPT/HCPCS: 93971

== ENCOUNTER → 2019-09-19 | Outpatient (CLI) | payer BC, SELFPAY ==
[2018-08-29 11:57] VITALS: BMI 38.0
--- NOTE | 2019-09-19 16:01 | BD_ITS ---
STUDY: DUAL ENERGY X-RAY ABSORPTIOMETRY / DXA REASON FOR EXAM: Female, 64 years old. 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 COMPARISON: None. FINDINGS: Right Forearm: g/cm2 (0.708) / T-score (-2.0) / Z-score (-0.6) Left Forearm: g/cm2 (0.684) / T-score (-2.3) / Z-score (-0.8) BD/Dexa Bone Density/Append Skel IMPRESSION: The patient is considered osteopenic as outlined below according to World Jordon Organization (WHO) criteria with a high fracture risk. Reference Information: The T-score is the number of standard deviations above or below the standard which is normal for young adults at their peak bone mineral density. The World Health Organization (WHO) interprets the T-scores as follows: Above -1 Normal bone density Between -1 and -2.5 Osteopenia Equal to / or below -2.5 Osteoporosis As a practical clinical guideline, osteopenia may be graded as follows: Mild -1 through -1.5 Moderate -1.6 through -2.0 Severe -2.1 through -2.4 The Z-score is the number of standard deviations above or below age-matched controls. A Z-score of less than -1.5 would be considered abnormal. References: 1. NIH Osteoporosis and Related Bone Diseases http://www.osteo.org 2. International Society for Clinical Densitometry http://www.iscd.org 3. National Osteoporosis Foundation http://www.nof.org Electronically Signed: Darrian Caruso, at 8:07 EDT , Service support ,
== END | disposition home or self-care (01) ==
PROVIDERS: PCP Internal Medicine; Referring Provider Internal Medicine; Visit Provider Internal Medicine
DX: M85.80 Other specified disorders of bone density and structure, unspecified site (principal)
CPT/HCPCS: 77081

== ENCOUNTER 2021-04-18 08:44 | Outpatient (CLI) | payer MEDICARE, OTHER, SELFPAY ==
--- NOTE | 2021-04-18 11:22 | NEURO ---
NCS and/or EMG Patient Report Ordering Doctor: Rom Sawyer DATE OF SERVICE: 04/18/21 Indication: Several month duration of numbness affecting all toes. There is no associated lower extremity weakness or radicular pain. History of prior lumbar decompression and fusion. Findings: Nerve conduction studies were performed in both lower extremities. The right peroneal motor study recording the extensor digitorum brevis showed a normal amplitude, normal distal latency and normal conduction velocity. No conduction block or focal slowing was present across the fibular neck. The right tibial motor study recording the abductor hallucis brevis showed a normal amplitude, normal distal latency and normal conduction velocity. Right sural sensory response showed a normal amplitude and conduction velocity. Right superficial peroneal sensory response showed an absent response. The left peroneal motor study recording the extensor digitorum brevis showed a normal amplitude, normal distal latency and normal conduction velocity. No conduction block or focal slowing was present across the fibular neck. The left tibial motor study recording the abductor hallucis brevis showed a normal amplitude, normal distal latency and normal conduction velocity. Left sural sensory response showed a normal amplitude and conduction velocity. Left superficial peroneal sensory response showed a normal amplitude and conduction velocity. Needle EMG of the right lower extremity muscles was performed. The lumbar paraspinal muscles were not sampled due to the patient history of prior low back surgery. Insertional activity was slightly increased in the tibialis anterior, but no active denervation was present in any muscle. Motor units were large amplitude and long duration with normal recruitment in the extensor hallucis longus and tensor fascia destinee muscles. Motor units in the tibialis anterior were borderline large amplitude and long duration. All other motor unit morphology, activation, and recruitment patterns were normal. Impression: This is an abnormal study. There is electrophysiologic evidence of a chronic, right, L5 radiculopathy. There is no active denervation within the L5 myotome to suggest ongoing motor axon loss. The absent superficial peroneal sensory response can be seen in approximately 5% of cases due to the intraspinal location of the dorsal root ganglion at this level. There is no electrophysiologic evidence of peripheral polyneuropathy. Please note: routine nerve conduction studies and needle EMG assess the larger, myelinated motor and sensory fibers. Thus, routine electrodiagnostic studies may be insensitive in detecting a peripheral neuropathy restricted to small fibers alone (i.e., pain, temperature and autonomic fibers). However, most peripheral neuropathies with predominantly small fiber large dysfunction will also involve large fibers to a lesser extent, and will demonstrate abnormalities on electrodiagnostic studies. Thus, clinical correlation is required in the interpretation of this negative electrodiagnostic study if an isolated small fiber neuropathy is considered. Rahat Hennessy D.O. Multi Select Codes Neurology Neurology Interp Codes: 97670-88 Musc test done w/n test comp (interp) and 99530-90 Nrv cndj test 7-8 studies (interp)
== END 2021-04-18 23:59 | disposition short-term general hospital (02) ==
LOC: PSN 08:50
PROVIDERS: PCP Internal Medicine; Referring Provider Podiatrist; Visit Provider Podiatrist
DX: M21.6X9 Other acquired deformities of unspecified foot (principal); M72.2 Plantar fascial fibromatosis; G60.3 Idiopathic progressive neuropathy
CPT/HCPCS: 95886; 95910

== ENCOUNTER → 2021-10-06 | Outpatient (CLI) | payer MEDICARE, OTHER, SELFPAY ==
--- NOTE | 2021-10-06 13:11 | MRI_ITS ---
STUDY: MRI RIGHT ANKLE WITHOUT CONTRAST REASON FOR EXAM: Right heel pain. TECHNIQUE: Standardized fat and water weighted pulse sequences were obtained in all 3 orthogonal planes. COMPARISON: None. FINDINGS: There is edema in the subcutis adipose space. Normal posterior tibialis tendon. Normal flexor digitorum longus tendon. Normal flexor hallucis longus tendon. Normal peroneus longus and brevis tendons. Normal tibialis anterior tendon. Normal extensor hallucis longus tendon. There is a small volume of fluid in the extensor digitorum longus tendon sheath (T2 axial images 13, 14). Normal Achilles tendon and teno-osseous insertion. There is interstitial edema in the central cord plantar fascia (inversion recovery sagittal images 13-15). There is mild reactive bone edema in the posterior tuberosity of the calcaneus at the origin of the plantar fascia and in the plantar calcaneal enthesophyte (inversion recovery sagittal images 10-13). There is mild atrophy with mild partial fat replacement of the abductor digiti minimi muscle (T1 sagittal image 8). Normal distal tibiofibular syndesmotic ligamentous complex. There is a mild sprain of the anterior talofibular ligament (inversion recovery series 9 image 10). Normal calcaneofibular and posterior talofibular ligaments. Normal subtalar ligaments and sinus tarsi. Normal deltoid ligamentous complexes. Normal plantar calcaneonavicular (spring) ligament. Normal tibiotalar articulation. Normal talar dome. Normal subtalar articulations. Normal talonavicular articulation. Normal calcaneocuboid articulation. Normal navicular-cuneiform articulations. MRI/Lower Ext Joint Only (Routine) IMPRESSION: Plantar fasciitis with reactive bone edema in the posterior tuberosity of the calcaneus at the origin of the plantar fascia. Mild sprain of the anterior talofibular ligament. Mild extensor digitorum longus tenosynovitis. Mild atrophy of the abductor digiti minimi muscle. Electronically Signed: Juice Alfonso MD at 14:53 EDT ,
== END | disposition home or self-care (01) ==
LOC: MRI 12:58
PROVIDERS: PCP Internal Medicine; Referring Provider Podiatrist; Visit Provider Podiatrist
DX: S93.491A Sprain of other ligament of right ankle, initial encounter (principal); M65.871 Other synovitis and tenosynovitis, right ankle and foot; M72.2 Plantar fascial fibromatosis
CPT/HCPCS: 73721